=== PATIENT | female | born 1930 | race Caucasian/White ===

== ENCOUNTER 2016-04-18 09:40 | Inpatient (IN) ==
[2016-04-18] MEDS ORDERED: Famotidine 20 MG/2 ML VIAL IVP ONE (10:03)
[2016-04-18] MEDS ORDERED: *HR* Promethazine 25 MG/ML VIAL IVP PRN (10:03)
[2016-04-18] MEDS ORDERED: *HR* OxyCODONE/APAP 5/325 TABLET PO PRN (10:03)
[2016-04-18] MEDS ORDERED: *HR* HYDROmorphone (PF) 1 MG/ML SYRINGE IVP PRN ×2 (10:03→15:47)
--- NOTE | 2016-04-18 10:03 | Discharge Summary ---
Outpatient Proc Discharge Plan - Plan Additional Instructions: Keep dressing dry okay to squeeze ball Prescriptions: Clindamycin [Cleocin] 150 mg PO Q6HR #12 capsule Hydrocodone/Acetaminophen [[place] 5-325 Tablet] 1 - 2 tab PO Q6H PRN #40 tab PRN Reason: Pain Ondansetron [Zofran] 4 mg PO Q8HR #30 tablet Home Medications: Amlodipine [Norvasc] 5 mg PO DAILY 04/18/16 [History] Chlorpheniramine Maleate [Allergy Relief] 4 mg PO DAILY PRN 04/18/16 [History] Clindamycin [Cleocin] 150 mg PO Q6HR #12 capsule 04/18/16 [Rx] FLUoxetine HCl [Prozac] 20 mg PO DAILY 04/18/16 [History] Fluticasone Propionate Nasal [Flonase] 2 spray NS DAILY 04/18/16 [History] Gabapentin [Neurontin] 300 mg PO TID 04/18/16 [History] Hydrocodone/Acetaminophen [[place] 5-325 Tablet] 1 - 2 tab PO Q6H PRN #40 tab [Rx] Lisinopril [Zestril] 40 mg PO DAILY 04/18/16 [History] Loperamide [Imodium] 2 mg PO Q4HR PRN 04/18/16 [History] Metoprolol Succinate 100 mg PO DAILY 04/18/16 [History] Multivitamin [One Daily Essential] 1 tab PO DAILY 04/18/16 [History] Omeprazole [PriLOSEC] 40 mg PO DAILY 04/18/16 [History] Ondansetron HCl [Zofran] 4 mg PO Q6HR PRN 04/18/16 [History] Ondansetron [Zofran] 4 mg PO Q8HR #30 tablet 04/18/16 [Rx] Oxycodone HCl/Acetaminophen [Percocet 5-325 mg Tablet] 1 tab PO Q4H PRN [History] Oxygen 1 each .ROUTE AD 04/18/16 [History] Tramadol HCl [Ultram] 100 mg PO BID PRN 04/18/16 [History] Vit C/E/Zn/Coppr/Lutein/Zeaxan [Ocuvite Lutein & Zeaxanthin Cp] 1 cap PO DAILY 04/18/16 [History]
[2016-04-18] MEDS ORDERED: Gabapentin 300 MG CAPSULE PO STA (10:06)
--- NOTE | 2016-04-18 10:10 | Anesthesia Evaluation PreOp ---
Date of Encounter: 04/18/16 Time of Encounter: 10:08 - Past History Planned Operation: ORIF R-humerus Cardiac History: HTN (maintained on Metoprolol XL, Norvasc, Lisinopril), Hyperlipidemia Pulmonary History: COPD (Home O2), ERICA Dx (no CPAP use within past 1week) TECHNICAL SOLUTIONS ENGINEER History: Other (Fibromyalgia - maintained on Gabapentin, Anxiety/ Depression - maintained on Prozac) Other Medical History: Renal (stage 3 CKD), GERD (maintainted on), Other (Basal Cell Ca) Anesthesia History: Past Anesthesia (R-arm surgery 2012, B-Total shoulders, sinus surgery x 2, L-TKR 2003, ovarian cystectomy 1998), Problems (PONV) Alcohol Use: none Drug use: none Medications and Allergies Ondansetron HCl [Zofran] 4 mg PO Q6HR #20 tablet 04/11/16 [Rx] Oxycodone HCl/Acetaminophen [Percocet 5-325 mg Tablet] 1 each PO Q4H #20 tablet 04/11/16 [Rx] Clindamycin [Cleocin] 150 mg PO Q6HR #12 capsule 04/18/16 [Rx] Ondansetron [Zofran] 4 mg PO Q8HR #30 tablet 04/18/16 [Rx] OxyCODONE Immed Rel [Roxicodone 5 MG] 5 - 10 mg PO Q6HR PRN #30 tablet 04/18/16 [Rx] Allergies aspirin Allergy (Verified 04/18/16 10:26) Nausea cefdinir Allergy (Verified 04/18/16 10:26) UNKNOWN ciprofloxacin Allergy (Verified 04/18/16 10:26) Anaphylaxis codeine Allergy (Verified 04/18/16 10:26) "MADE ME CRAZY" morphine Allergy (Verified 04/18/16 10:26) N/V Sulfa (Sulfonamide Antibiotics) Allergy (Verified 04/18/16 10:26) UNEFFECTIVE Oxycodone Adverse Reaction (Verified 04/18/16 10:26) "DON'T LIKE THE WAY IT MAKES ME FEEL" - Meds/Allergy Pre-op Review Medications Reviewed: Yes Allergies Reviewed: Yes Beta Blockers on Current Med List: Yes If Beta Blockers taken, Date/Time (Last Dose taken): Metoprolol 04/18 @ 0600 Anesthesia Results - Labs Laboratory Tests 04/14/16 04/14/16 11:51 11:51 WBC 10.2 Hgb 12.6 Hct 39.0 Plt Count 133 L Sodium 135 L Potassium 5.0 H Chloride 102 Carbon Dioxide 24 BUN 37 H Creatinine 1.94 H Est GFR (Non-Af Amer) 25 L Glucose 91 - Imaging EKG: image reviewed (70bpm SR) Anesthesia Exam O2 Sat Height 1.63 m Height 1.63 m Weight 83.915 kg Weight 83.915 kg O2 Sat by Pulse Oximetry 95 Vital Signs Temp Pulse Resp BP Pulse Ox 99.0 F 73 18 158/78 95 04/18/16 10:11 04/18/16 10:11 04/18/16 10:11 04/18/16 10:11 04/18/16 10:11 Height: 5'4" Weight: 185# NPO (# of Hours): MNoc - HEENT Pupil (Motor): Pupils equal, EOMI Mallampati: II Teeth: Edentulous Denture Type: Upper: Complete, Lower: Complete Oral Opening: Greater than 3 - TECHNICAL SOLUTIONS ENGINEER LOC: Oriented TECHNICAL SOLUTIONS ENGINEER Motor: Normal LUE, Normal RLE, Normal LLE, Normal Face, Deficit RUE TECHNICAL SOLUTIONS ENGINEER Sensory: Normal: LUE, RLE, LLE, Face, Deficit: RUE - Cardiac Rhythm: Regular Murmur: None - Pulmonary Breath Sounds: bilateral Clear Respiratory Effort: Symmetrical Anesthesia Assess/Plan ASA Score: 3 Modified Basilio Scale for Level of Consciousness: Cooperative, oriented, and tranquil Anesthetic Plan: General, Regional Monitoring Plan: Standard Monitors Recovery Plan: PACU Anes Supervising Prov Stmt: Pt seen/evaluated, R&B discussed, questions answered and consent obtained. Sarah Hair MD
[2016-04-18] MEDS ORDERED: Acetaminophen IV 1,000 MG/100 ML INFUS..BTL IVPB ONE (10:12)
[2016-04-18] MEDS ORDERED: *HR* Midazolam HCl 2 MG/2 ML VIAL ONE (10:29)
[2016-04-18] MEDS ORDERED: *HR* FentaNYL (PF) 100 MCG/2 ML VIAL ONE (10:29)
[2016-04-18] MEDS ORDERED: *HR* Propofol 200 MG/20 ML VIAL IVP ONE (10:30)
[2016-04-18] MEDS ORDERED: Lidocaine -MPF 2% 2 ML VIAL ONE (10:31)
[2016-04-18] MEDS ORDERED: *HR* Succinylcholine 200 MG/10 ML VIAL IVP ONE (10:31)
[2016-04-18] MEDS ORDERED: Lidocaine -MPF 4% 5 ML AMPUL ONE (10:32)
[2016-04-18] MEDS ORDERED: Scopolamine Patch 1.5 MG PATCH.TD72 TD ONE (10:34)
[2016-04-18] MEDS ORDERED: Bupivacaine/Clonidine Syringe 1 EACH SYRINGE ONE (10:35)
[2016-04-18] MEDS ORDERED: Tetracaine/PF 20 MG/2 ML AMPUL SPINA ONE (10:36)
[2016-04-18] MEDS ORDERED: Ringers Solution, Lactated 1,000 ML IVC SCH ×2 (11:15→15:47)
--- NOTE | 2016-04-18 11:21 | History & Physical Report ---
Date of Encounter: 04/18/16 Time of Encounter: 11:21 24 Hour HP Update - Instructions Instructions: If the History and Physical is less than 30 days old and was completed prior to A.M. admission and or procedure and has NOT been updated on calendar day of procedure please complete this update prior to performing procedure. - Update Patient reports changes in Medical Condition: No Changes in assessment/condition: No Changes in Medication: No Preop tests/diagnostics Reviewed: Yes Surgery Remains Indicated: Yes Consent for Planned Operative Procedure(s) Verified: Yes - Pre-Operative Checklist Preoperative Checklist Indicated: No Prophylactic Antibiotic Ordered: Yes Is VTE Prophylaxis Indicated?: NO
--- NOTE | 2016-04-18 12:20 | Anesthesia Procedures ---
Date of Encounter: 04/18/16 Time of Encounter: 12:18 Procedures: Anesthesia - Nerve Block Procedure Date: 04/18/16 Time: 12:18 Pre-op Diagnosis: Right Humerus Fx Checklist: Correct Patient Identifier, Correct procedure, History checked Correct side: Right Blood Thinner: No Monitor Applied: EKG, BP, Pulse Oximetry Supplemental Oxygen via Nasal Cannula (L/min): 2 Sedation: Versed (mg): 1 Sedation: Fentanyl (mcg): 25 Indication: Post Op Analgesia (per Dr. Su) Pre-op Neuro Deficits: No Block Type: Supraclavicular Catheter placed: No Sterile Technique: Yes Ultrasound used: Yes Anatomy identified: Yes Visual spread of Local: Yes Neuro Stimulation: No Blood on Needle Aspiration: No Smooth Injection of Local: Yes Pain with Injection of Local: No Prep: Chlorhexadine Needle: 22 x 50 mm Stimuplex Local: 0.25% Bupivicaine w/Clonidine 20 mcg/cc, Tetracaine Volume (cc): 35cc + 5 cc SCP Number of Attempts: 1 Complications: None/effective block Vitals: 116/76, 70, 98% 2LNC, 16 Comments: [facility]
[2016-04-18] MEDS ORDERED: Clindamycin 900 MG/50 ML 900 MG/50 ML IV.SOLN IVPB ONE (12:25)
[2016-04-18] MEDS ORDERED: EPHEDrine 50 MG/ML VIAL ONE (13:23)
[2016-04-18] MEDS ORDERED: Dexamethasone 4 MG/ML VIAL ONE (13:27)
[2016-04-18] MEDS ORDERED: Ondansetron 4 MG/2 ML VIAL ONE (13:27)
--- NOTE | 2016-04-18 14:34 | Orthopedic Operative Note ---
Date of procedure: 04/18/16 Pre-op diagnosis: right displaced comminuted distal third humeral shaft fracture Post-op diagnosis: same Procedure: Procedure: Right open reduction internal fixation Humerus Estimated blood loss: 350 cc Hardware: Synthes metaphyseal 3.5/ 4.5 LCDCP locking Plate, 1 4.5 cortical screws, 3 5.0 Locking screws, 4 3.5 locking screws, one 3.5 cortical screw 4 super cables Procedural Notes: Patient had a comminuted displaced distal third fracture below her shoulder prosthesis. Operative procedure: The patient was brought to the operating room and placed on the operating room table. After general anesthesia was administered the operative arm was prepped and draped in the sterile surgical fashion The patient received IV antibiotics prior to skin incision. A standard anterior lateral approach is made to the humerus, the incision is made to the skin and subcutaneous tissue. Hemostasis was obtained with Bovie cautery. Using careful blunt dissection the interval between the brachialis and the brachial radialis was developed. The radial nerve was identified and protected. The brachialis was split and the fracture site was exposed. The fracture was irrigated of fracture hematoma. Fracture was reduced and held in place with bone holding forceps. It was a comminuted fracture. Initial fixation was accomplished with 2 super cables. A 3.5/4.5 metaphyseal LCDCP locking plate was approximated to the anterior lateral surface, it was fixed initially in compression with a 4.5 cortical screw. It was fixed distally with one 3.5 cortical screw and 5 3.5 locking screws. Fixation proximally was completed with 3 5.0 locking screws. Fixation was augmented with 2 super cables around the whole construct superiorly and inferiorly. Direct Vision of the hardware was found to be acceptable as well as the reduction. This was confirmed with direct visualization and fluoroscopy. The wound was irrigated and the interval was closed with a running #1 PDS suture. The subcutaneous tissues irrigated and closed deep with #1 PDS suture superficially with 0 PDS suture and skin was closed with Dermabond skin emilia. The patient was placed in a sterile dressing, posterior splint. The patient was extubated, and then transferred to the recovery room in stable condition. Anesthesia: GETA Condition: stable Disposition: PACU
--- NOTE | 2016-04-18 15:31 | Discharge Summary ---
Date of Encounter: 04/22/16 Time of Encounter: 06:33 - Discharge Diagnosis (1) HTN (hypertension) Priority: Secondary Status: Acute Qualifiers: Hypertension type: unspecified secondary hypertension Qualified Code(s): I15.9 - Secondary hypertension, unspecified; I15 - Secondary hypertension (2) COPD (chronic obstructive pulmonary disease) Priority: Secondary Status: Acute Qualifiers: COPD type: unspecified COPD Qualified Code(s): J44.9 - Chronic obstructive pulmonary disease, unspecified (3) CKD (chronic kidney disease) stage 3, GFR 30-59 ml/min Priority: Secondary Status: Chronic (4) ERICA (obstructive sleep apnea) Priority: Secondary Status: Chronic (5) Hyperlipidemia Priority: Secondary Status: Acute Qualifiers: Hyperlipidemia type: unspecified Qualified Code(s): E78.5 - Hyperlipidemia , unspecified (6) Humerus distal fracture Priority: Primary Status: Inactive Qualifiers: Encounter type: initial encounter Fracture type: closed Fracture alignment: displaced Laterality: right Qualified Code(s): S42.491A - Other displaced fracture of lower end of right humerus, initial encounter for closed fracture (7) Postoperative confusion Priority: Primary Status: Acute - Discharge Medications Home Medications: Amlodipine [Norvasc] 5 mg PO DAILY 04/18/16 [History] Chlorpheniramine Maleate [Allergy Relief] 4 mg PO DAILY PRN 04/18/16 [History] FLUoxetine HCl [Prozac] 20 mg PO DAILY 04/18/16 [History] Fluticasone Propionate Nasal [Flonase] 2 spray NS DAILY 04/18/16 [History] Gabapentin [Neurontin] 300 mg PO TID 04/18/16 [History] Hydrocodone/Acetaminophen [[place] 5-325 Tablet] 1 - 2 tab PO Q6H PRN #40 tab [Rx] Lisinopril [Zestril] 40 mg PO DAILY 04/18/16 [History] Loperamide [Imodium] 2 mg PO Q4HR PRN 04/18/16 [History] Metoprolol Succinate 100 mg PO DAILY 04/18/16 [History] Multivitamin [One Daily Essential] 1 tab PO DAILY 04/18/16 [History] Omeprazole [PriLOSEC] 40 mg PO DAILY 04/18/16 [History] Ondansetron HCl [Zofran] 4 mg PO Q6HR PRN 04/18/16 [History] Ondansetron [Zofran] 4 mg PO Q8HR #30 tablet 04/18/16 [Rx] Oxycodone HCl/Acetaminophen [Percocet 5-325 mg Tablet] 1 tab PO Q4H PRN [History] Oxygen 1 each .ROUTE AD 04/18/16 [History] Tramadol HCl [Ultram] 100 mg PO BID PRN 04/18/16 [History] Vit C/E/Zn/Coppr/Lutein/Zeaxan [Ocuvite Lutein & Zeaxanthin Cp] 1 cap PO DAILY 04/18/16 [History] Allergies/Adverse Reactions: Allergies aspirin Allergy (Verified 04/18/16 10:26) Nausea cefdinir Allergy (Verified 04/18/16 10:26) UNKNOWN ciprofloxacin Allergy (Verified 04/18/16 10:26) Anaphylaxis codeine Allergy (Verified 04/18/16 10:26) "MADE ME CRAZY" morphine Allergy (Verified 04/18/16 10:26) N/V Sulfa (Sulfonamide Antibiotics) Allergy (Verified 04/18/16 10:26) UNEFFECTIVE Oxycodone Adverse Reaction (Verified 04/18/16 10:26) "DON'T LIKE THE WAY IT MAKES ME FEEL" - Impressions ITS Impressions Fluoroscopy 04/18/16 00:00 IMPRESSION: Intraprocedural fluoroscopic spot images as above. See separate procedure report for more information. D/ /18/2016 14:57:26 Jimenez Atkinson MD / aleksandra Interpreting Provider: Jimenez Atkinson MD Humerus X-Ray 04/18/16 00:00 IMPRESSION: Intraprocedural fluoroscopic spot images as above. See separate procedure report for more information. D/ /18/2016 14:57:26 Jimenez Atkinson MD / aleksandra Interpreting Provider: Jimenez Atkinson MD Primary care physician: Angelica Nieves Consults: 04/18/16 14:43 Consult to Superintendent [employer] [CONS] Stat Reason for SW Consult: FAMILY CONCERNED ABOUT PT HOME CARE S/P RUE SX. - Patient Status Disposition: Transfer Inpatient Rehab Fac Condition: Good Functional capacity at discharge: independent ambulation Overall status at discharge: patient is progressing back to baseline - Discharge Instructions Follow Up With: Brionna aBum DO [Primary Care Provider] - Additional Instructions: Keep dressing dry okay to squeeze ball - Hospital Course Hospital course: Ms. Roland is a 85 year old female The patient had an uneventful postoperative course. Experience some postoperative mental status changes doing well this morning They received antibiotics and physical therapy and were discharged in stable condition. There will follow-up in the office in 2 weeks. - Time Spent with Patient Total time spent providing and/or coordinating discharge services:
[2016-04-18] MEDS ORDERED: Albuterol Neb 1.25 MG/3 ML VIAL IH ONE (15:47)
[2016-04-18] MEDS ORDERED: NON-FORMULARY MEDICATION 1 EACH EACH (Oxygen [Oxygen] 1 EACH) SCH (15:47)
[2016-04-18] MEDS ORDERED: Ondansetron 4 MG/2 ML VIAL IVP PRN (15:47)
[2016-04-18] MEDS ORDERED: Temazepam 15 MG CAPSULE PO PRN (15:47)
[2016-04-18] MEDS ORDERED: MOM Conc 10 ML UD.LIQ PO PRN (15:47)
[2016-04-18] MEDS ORDERED: Naloxone 0.4 MG/ML INJ IVP PRN (15:47)
[2016-04-18] MEDS ORDERED: [UNRECOGNIZED DRUG - REMARK] PO PRN (15:47)
[2016-04-18] MEDS ORDERED: Sennosides 8.6 MG TABLET PO PRN (15:47)
--- NOTE | 2016-04-18 16:28 | Anesthesia Evaluation Post Op ---
Date of Encounter: 04/18/16 Time of Encounter: 16:27 - Vital Signs Vital Signs: Vital Signs/O2 Sat, Most Current Temp Pulse Resp BP Pulse Ox 97.8 F 69 14 110/61 97 04/18/16 16:00 04/18/16 16:00 04/18/16 16:00 04/18/16 16:00 04/18/16 16:00 - Lungs Lungs: Clear Ascult./Percussion - Airway Airway: Non-obstructed - Cardiovascular Regular Rate - Mental Status Mental Status: Alert & Oriented, Answers Appropriately - Pain Pain Scale: 0 (no shoulder pain) Pain Scale used: Numeric (1 - 10) - Nausea Vomiting Nausea Vomiting: Not Present - Hydration Hydration: Ice chips, Has not voided - Discharge PostOp Status: Transfer Patient to floor
[2016-04-18] MEDS ORDERED: *HR* Phenylephrine 10 MG/ML VIAL ONE (17:04)
[2016-04-18] MEDS: Clindamycin 900 MG/50 ML 900 MG/50 ML IV.SOLN IVPB SCH (22:16)
[2016-04-18] MEDS: Gabapentin 300 MG CAPSULE PO SCH (22:16)
[2016-04-18] MEDS: traMADol 50 MG TABLET PO PRN (23:14)
[2016-04-19] MEDS: *HR* Enoxaparin 30 MG/0.3 ML SYRINGE SQ SCH (05:28)
[2016-04-19] MEDS: Clindamycin 900 MG/50 ML 900 MG/50 ML IV.SOLN IVPB SCH (05:28)
[2016-04-19 06:07] LABS: Hematocrit 35.7 % (35.3-44.9); Hemoglobin 11.5 g/dL (11.5-15.4)
--- NOTE | 2016-04-19 06:28 | Orthopedics Progress Note ---
Date of Encounter: 04/19/16 Time of Encounter: 06:27 - Assessment and Plan (1) HTN (hypertension) Current Visit: Yes Status: Acute Qualifiers: Hypertension type: unspecified secondary hypertension Qualified Code(s): I15.9 - Secondary hypertension, unspecified; I15 - Secondary hypertension (2) COPD (chronic obstructive pulmonary disease) Current Visit: Yes Status: Acute Qualifiers: COPD type: unspecified COPD Qualified Code(s): J44.9 - Chronic obstructive pulmonary disease, unspecified (3) CKD (chronic kidney disease) stage 3, GFR 30-59 ml/min Current Visit: Yes Status: Chronic (4) ERICA (obstructive sleep apnea) Current Visit: Yes Status: Chronic (5) Hyperlipidemia Current Visit: Yes Status: Acute Qualifiers: Hyperlipidemia type: unspecified Qualified Code(s): E78.5 - Hyperlipidemia , unspecified (6) Humerus distal fracture Current Visit: No Status: Inactive Qualifiers: Encounter type: initial encounter Fracture type: closed Fracture alignment: displaced Laterality: right Qualified Code(s): S42.491A - Other displaced fracture of lower end of right humerus, initial encounter for closed fracture (7) Postoperative confusion Current Visit: Yes Status: Acute Subjective Interval history: Patient was seen this morning post operative confusion most likely medication related. Continue to monitor Afebrile vital signs stable. Operative extremity: Neurovascularly intact Dressing clean dry and intact Calves nontender Assessment and plan: Continue with postoperative care Objective Vital signs: Vital Signs Temp Pulse Resp BP Pulse Ox 04/19/16 01:36 98.5 F 88 20 128/74 96 04/18/16 23:15 98.1 F 86 20 112/66 96 04/18/16 21:32 98.2 F 98 18 115/62 94 L 04/18/16 19:01 98.7 F 85 16 110/63 93 L 04/18/16 18:02 98.3 F 77 16 112/59 93 L 04/18/16 17:04 97.8 F 72 14 116/49 99 04/18/16 16:30 98.2 F 70 14 113/60 98 04/18/16 16:00 97.8 F 69 14 110/61 97 04/18/16 15:38 97.2 F L 69 16 99/52 99 04/18/16 15:28 73 16 103/53 98 04/18/16 15:18 67 16 108/83 98 04/18/16 15:08 97.8 F 70 16 106/58 100 04/18/16 14:58 69 16 121/69 99 04/18/16 14:48 70 16 121/65 99 04/18/16 14:38 98.1 F 75 16 125/64 99 04/18/16 10:11 99.0 F 73 18 158/78 95 Intake and Output 04/18/16 04/18/16 04/19/16 15:59 23:59 07:59 Intake Total 375 / 375 1150 / 1150 Output Total 350 / 350 500 / 500 200 / 200 Balance -350 / -350 -125 / -125 950 / 950 Intake: IV Fluids 50 / 50 Cleocin 900 MG/50 ML 900 50 / 50 mg In 50 ml @ 50 mls/hr IVPB Q8H EMILIE Rx#: [id number] Oral 325 / 325 1150 / 1150 Output: Urine 500 / 500 200 / 200 Estimated Blood Loss 350 / 350 Other: # Voids 2 Weight 83.915 kg - Labs CBC & BMP: 04/19/16 05:31 - VTE Documentation of Mechanical Device: Venous foot pump, device Consult Discharge Plan - Plan Additional Instructions: Keep dressing dry okay to squeeze ball Referrals: Brionna Baum, DO [Primary Care Provider] -
[2016-04-19] MEDS ORDERED: [UNRECOGNIZED DRUG - OTHER] PO SCH (09:00)
[2016-04-19] MEDS: Gabapentin 300 MG CAPSULE PO SCH ×3 (09:59→20:10)
[2016-04-19] MEDS: amLODIPine 5 MG TABLET PO SCH (09:59)
[2016-04-19] MEDS: Multivit/Ca/Min/Fe/FA 1 TAB TABLET PO SCH (10:00)
[2016-04-19] MEDS: FLUoxetine 20 MG CAPSULE PO SCH (10:00)
[2016-04-19] MEDS: Lisinopril 20 MG TABLET PO SCH (10:00)
[2016-04-19] MEDS: Metoprolol XL (24 HR) Succ 50 MG TAB.ER.24H PO SCH (10:00)
[2016-04-19] MEDS: Fluticasone Propionate Nasal 50 MCG/SPRAY BOTTLE NS SCH (10:27)
[2016-04-19] MEDS ORDERED: *HR* Enoxaparin 30 MG/0.3 ML SYRINGE SQ SCH (15:24)
[2016-04-19] MEDS: traMADol 50 MG TABLET PO PRN (16:59)
[2016-04-19] MEDS: *HR* HYDROcodone/Acet 5/325 mg TABLET PO PRN (20:11)
[2016-04-20] MEDS: traMADol 50 MG TABLET PO PRN (03:51)
[2016-04-20 05:16] LABS: Hematocrit 36.6 % (35.3-44.9); Hemoglobin 12.2 g/dL (11.5-15.4)
[2016-04-20] MEDS: *HR* Enoxaparin 30 MG/0.3 ML SYRINGE SQ SCH (06:05)
--- NOTE | 2016-04-20 09:24 | Orthopedics Progress Note ---
Date of Encounter: 04/20/16 Time of Encounter: 09:23 Subjective Interval history: Resting in bed comfortably. Confusion seems to be improving. No new complaints. Pain very well controlled. Exam: Operative extremity with dressing and splint, clean , dry, and intact. She can grossly flex and extend her wrist and digits Hand is well perfused. Assessment and Plan: Post ORIF of the periprosthetic distal humerus fracture Resume postoperative care Objective Vital signs: Vital Signs Temp Pulse Resp BP Pulse Ox 04/20/16 06:34 98.1 F 94 16 123/51 96 04/20/16 03:51 97.9 F 96 18 118/57 92 L 04/20/16 00:37 97.9 F 84 18 117/66 92 L 04/19/16 20:32 97.9 F 84 16 156/70 95 04/19/16 14:37 98.3 F 87 16 119/53 94 L 04/19/16 11:47 98.6 F 84 15 116/55 95 04/19/16 09:55 95 Intake and Output 04/19/16 04/20/16 04/20/16 23:59 07:59 15:59 Intake Total 200 / 200 100 / 100 Output Total Balance 200 / 200 99 / 99 Intake: Oral 200 / 200 100 / 100 Output: Straight Cath Other: # Voids 2 1 # Urine Diapers 1 - Labs CBC & BMP: 04/20/16 04:22 - VTE Documentation of Mechanical Device: Venous foot pump, device Consult Discharge Plan - Plan Additional Instructions: Keep dressing dry okay to squeeze ball Referrals: Brionna Baum, [Primary Care Provider] -
[2016-04-20] MEDS: Metoprolol XL (24 HR) Succ 50 MG TAB.ER.24H PO SCH (09:26)
[2016-04-20] MEDS: amLODIPine 5 MG TABLET PO SCH (09:26)
[2016-04-20] MEDS: Lisinopril 20 MG TABLET PO SCH (09:26)
[2016-04-20] MEDS: FLUoxetine 20 MG CAPSULE PO SCH (09:26)
[2016-04-20] MEDS: Gabapentin 300 MG CAPSULE PO SCH ×3 (09:27→20:50)
[2016-04-20] MEDS: Multivit/Ca/Min/Fe/FA 1 TAB TABLET PO SCH (09:27)
[2016-04-20] MEDS: Fluticasone Propionate Nasal 50 MCG/SPRAY BOTTLE NS SCH (09:28)
[2016-04-21] MEDS: *HR* Enoxaparin 30 MG/0.3 ML SYRINGE SQ SCH (05:00)
[2016-04-21] MEDS: traMADol 50 MG TABLET PO PRN ×2 (05:00→16:27)
--- NOTE | 2016-04-21 06:25 | Orthopedics Progress Note ---
Date of Encounter: 04/21/16 Time of Encounter: 06:24 - Assessment and Plan (1) HTN (hypertension) Current Visit: Yes Status: Acute Qualifiers: Hypertension type: unspecified secondary hypertension Qualified Code(s): I15.9 - Secondary hypertension, unspecified; I15 - Secondary hypertension (2) COPD (chronic obstructive pulmonary disease) Current Visit: Yes Status: Acute Qualifiers: COPD type: unspecified COPD Qualified Code(s): J44.9 - Chronic obstructive pulmonary disease, unspecified (3) CKD (chronic kidney disease) stage 3, GFR 30-59 ml/min Current Visit: Yes Status: Chronic (4) ERICA (obstructive sleep apnea) Current Visit: Yes Status: Chronic (5) Hyperlipidemia Current Visit: Yes Status: Acute Qualifiers: Hyperlipidemia type: unspecified Qualified Code(s): E78.5 - Hyperlipidemia , unspecified (6) Humerus distal fracture Current Visit: No Status: Inactive Qualifiers: Encounter type: initial encounter Fracture type: closed Fracture alignment: displaced Laterality: right Qualified Code(s): S42.491A - Other displaced fracture of lower end of right humerus, initial encounter for closed fracture (7) Postoperative confusion Current Visit: Yes Status: Acute Subjective Interval history: Patient was seen this morning doing better Afebrile vital signs stable. Operative extremity: Neurovascularly intact Dressing clean dry and intact Calves nontender Assessment and plan: Continue with postoperative care dc tomorrow due to placement issues Objective Vital signs: Vital Signs Temp Pulse Resp BP Pulse Ox 04/21/16 04:58 76 133/72 04/21/16 00:31 97.9 F 98 20 124/62 93 L 04/20/16 20:18 97.9 F 99 20 120/67 94 L 04/20/16 15:00 97.8 F 93 16 114/63 92 L 04/20/16 10:36 97.6 F 87 16 117/58 93 L 04/20/16 06:34 98.1 F 94 16 123/51 96 Intake and Output 04/20/16 04/20/16 04/21/16 15:59 23:59 07:59 Intake Total 240 / 240 320 / 320 150 / 150 Balance 240 / 240 320 / 320 150 / 150 Intake: Oral 240 / 240 320 / 320 150 / 150 Other: Meal Dinner Percent of Meal Consumed 40% # Voids 1 1 # Urine Diapers 1 1 - Labs CBC & BMP: 04/20/16 04:22 - VTE Documentation of Mechanical Device: Venous foot pump, device Consult Discharge Plan - Plan Additional Instructions: Keep dressing dry okay to squeeze ball Referrals: Brionna Baum, DO [Primary Care Provider] -
[2016-04-21] MEDS: FLUoxetine 20 MG CAPSULE PO SCH (11:41)
[2016-04-21] MEDS: Fluticasone Propionate Nasal 50 MCG/SPRAY BOTTLE NS SCH (11:41)
[2016-04-21] MEDS: Multivit/Ca/Min/Fe/FA 1 TAB TABLET PO SCH (11:42)
[2016-04-21] MEDS: amLODIPine 5 MG TABLET PO SCH (11:42)
[2016-04-21] MEDS: Metoprolol XL (24 HR) Succ 50 MG TAB.ER.24H PO SCH (11:42)
[2016-04-21] MEDS: Lisinopril 20 MG TABLET PO SCH (11:42)
[2016-04-21] MEDS: Gabapentin 300 MG CAPSULE PO SCH ×3 (11:42→21:12)
[2016-04-21] MEDS ORDERED: traMADol 50 MG TABLET PO PRN (15:19)
[2016-04-21] MEDS: *HR* HYDROcodone/Acet 5/325 mg TABLET PO PRN (21:12)
[2016-04-22] MEDS: traMADol 50 MG TABLET PO PRN ×2 (05:02→10:11)
[2016-04-22] MEDS: *HR* Enoxaparin 30 MG/0.3 ML SYRINGE SQ SCH (05:02)
--- NOTE | 2016-04-22 06:34 | Orthopedics Progress Note ---
Date of Encounter: 04/22/16 Time of Encounter: 06:34 - Assessment and Plan (1) HTN (hypertension) Current Visit: Yes Status: Acute Qualifiers: Hypertension type: unspecified secondary hypertension Qualified Code(s): I15.9 - Secondary hypertension, unspecified; I15 - Secondary hypertension (2) COPD (chronic obstructive pulmonary disease) Current Visit: Yes Status: Acute Qualifiers: COPD type: unspecified COPD Qualified Code(s): J44.9 - Chronic obstructive pulmonary disease, unspecified (3) CKD (chronic kidney disease) stage 3, GFR 30-59 ml/min Current Visit: Yes Status: Chronic (4) ERICA (obstructive sleep apnea) Current Visit: Yes Status: Chronic (5) Hyperlipidemia Current Visit: Yes Status: Acute Qualifiers: Hyperlipidemia type: unspecified Qualified Code(s): E78.5 - Hyperlipidemia , unspecified (6) Humerus distal fracture Current Visit: No Status: Inactive Qualifiers: Encounter type: initial encounter Fracture type: closed Fracture alignment: displaced Laterality: right Qualified Code(s): S42.491A - Other displaced fracture of lower end of right humerus, initial encounter for closed fracture (7) Postoperative confusion Current Visit: Yes Status: Acute Subjective Interval history: Patient was seen this morning alert and oriented Afebrile vital signs stable. Operative extremity: Neurovascularly intact Dressing clean dry and intact Calves nontender Assessment and plan: Continue with postoperative care dc today Objective Vital signs: Vital Signs Temp Pulse Resp BP Pulse Ox 04/22/16 04:47 98.3 F 72 20 159/75 98 04/21/16 23:32 98.6 F 73 13 101/62 97 04/21/16 20:26 98.5 F 72 17 118/65 97 04/21/16 15:28 98.7 F 73 18 133/68 93 L 04/21/16 11:37 98.6 F 79 16 109/63 96 04/21/16 06:51 98.6 F 76 16 120/69 97 Intake and Output 04/21/16 04/21/16 04/22/16 15:59 23:59 07:59 Intake Total 360 / 360 Balance 360 / 360 Intake: Oral 360 / 360 Other: Meal Dinner Percent of Meal Consumed 100% Stool Size Large Stool Consistency soft Stool Color Brown # Voids 1 # Bowel Movements 1 - Labs CBC & BMP: 04/20/16 04:22 - VTE Documentation of Mechanical Device: Venous foot pump, device Consult Discharge Plan - Plan Additional Instructions: Keep dressing dry okay to squeeze ball Referrals: Brionna Baum, [Primary Care Provider] -
[2016-04-22] MEDS: amLODIPine 5 MG TABLET PO SCH (09:53)
[2016-04-22] MEDS: Lisinopril 20 MG TABLET PO SCH (09:53)
[2016-04-22] MEDS: FLUoxetine 20 MG CAPSULE PO SCH (10:07)
[2016-04-22] MEDS: Metoprolol XL (24 HR) Succ 50 MG TAB.ER.24H PO SCH (10:07)
[2016-04-22] MEDS: Gabapentin 300 MG CAPSULE PO SCH (10:08)
[2016-04-22] MEDS: Multivit/Ca/Min/Fe/FA 1 TAB TABLET PO SCH (10:08)
[2016-04-22] MEDS: Fluticasone Propionate Nasal 50 MCG/SPRAY BOTTLE NS SCH (10:09)
[2016-04-22 10:37] VITALS: BP 119/71
== END 2016-04-22 12:24 | DRG 493 ==
LOC: 3NENU 09:40 → SAMDAY 09:40 → 3NENU 15:48
PROVIDERS: ADMIT Orthopaedic Surgery; ATTEND Orthopaedic Surgery

== ENCOUNTER 2017-04-06 02:03 | Inpatient (IN) ==
[2017-04-06] MEDS ORDERED: Levofloxacin 750 MG/150 ML 750 MG/150 ML BAG IVPB ONE (02:28)
[2017-04-06] MEDS ORDERED: Aztreonam 2,000 MG in Water for inj. (sterile) 20 ML IVP ONE (02:28)
[2017-04-06] MEDS ORDERED: Ipratropium/Albuterol Neb 3 ML IH ONE (02:33)
--- NOTE | 2017-04-06 02:42 | Emergency Department Note ---
Disposition Clinical Impression: CKD (chronic kidney disease) stage 3, GFR 30-59 ml/min Community acquired pneumonia Qualifiers: Laterality: unspecified laterality Qualified Code(s): J18.9 - Pneumonia, unspecified organism Disposition: Admitted As Inpatient Condition: Fair Time of Disposition: 04:11 SOB HPI - General Chief Complaint: ED Shortness of Breath/Dyspnea Stated Complaint: difficulty breathin, chronic back pain Time Seen by Provider: 04/06/17 02:11 Source: patient, EMS Mode of arrival: ambulatory Limitations: no limitations Nursing Notes Reviewed: Yes Vital Signs Reviewed: Yes - History of Present Illness 86-year-old female presents to the emergency department complaining of shortness of breath as well as purulent sputum and cough as well as a fever. Patient does live at home by herself. Says she has not been admitted to the hospital anytime recently. She having a little bit of chest pain says it feels like chest pressure to 2 out of 10 located in the center chest nonradiating. She had no nausea or vomiting. Patient otherwise having no complaints. There are no abdominal pain, pain with urination, change in bowel movements, headache , blurry vision, back pain, neck pain, pain or tingling on the arms or legs or any generalized weakness. - Related Data Home Medications Medication Instructions Recorded Confirmed Fluticasone Propionate Nasal 2 spray NS DAILY 04/18/16 09/11/16 [Flonase] Gabapentin [Neurontin] 300 mg PO TID 04/18/16 09/11/16 Lisinopril [Zestril] 20 mg PO DAILY 04/18/16 09/11/16 Loperamide [Imodium] 2 mg PO Q4HR PRN 04/18/16 09/11/16 Metoprolol Succinate 100 mg PO DAILY 04/18/16 09/11/16 Multivitamin [One Daily Essential] 1 tab PO DAILY 04/18/16 09/11/16 Omeprazole [PriLOSEC] 40 mg PO DAILY 04/18/16 09/11/16 Ondansetron HCl [Zofran] 4 mg PO Q6HR PRN 04/18/16 09/11/16 Tramadol HCl [Ultram] 100 mg PO BID PRN 04/18/16 09/11/16 Vit C/E/Zn/Coppr/Lutein/Zeaxan 1 cap PO DAILY 04/18/16 09/11/16 [Ocuvite Lutein & Zeaxanthin Cp] amLODIPine [Norvasc] 5 mg PO DAILY 04/18/16 09/11/16 Loratadine [Claritin] 10 mg PO DAILY PRN 07/01/16 09/11/16 Temazepam [Restoril] 7.5 mg PO HS 07/23/16 09/11/16 predniSONE [PredniSONE] 20 mg PO AD 07/23/16 09/11/16 Previous Rx's Medication Instructions Recorded Sertraline [Zoloft] 25 mg PO DAILY #30 tablet 07/23/16 HYDROcodone/Acet 5/325 mg [[place] 1 tab PO Q6HR PRN #15 tablet 07/27/16 5-325 mg] Allergies Allergy/AdvReac Type Severity Reaction Status Date / Time aspirin Allergy Nausea Verified 04/06/17 02:04 cefdinir Allergy UNKNOWN Verified 04/06/17 02:04 ciprofloxacin Allergy Anaphylaxis Verified 04/06/17 02:04 codeine Allergy "MADE ME Verified 04/06/17 02:04 CRAZY" morphine Allergy N/V Verified 04/06/17 02:04 Sulfa (Sulfonamide Allergy UNEFFECTIVE Verified 04/06/17 02:04 Antibiotics) Oxycodone AdvReac "DON'T Verified 04/06/17 02:04 LIKE THE WAY IT MAKES ME FEEL" Review of Systems: 10 point review of systems done and negative unless otherwise stated in history of present illness. All systems ED: reviewed and negative except as stated. Review of Systems: As Per HPI Past Medical History - Past Medical History Attestation: Yes The following information was validated with the patient. Medical history: Reports: arthritis, hyperlipidemia, hypertension, renal disease , other Surgical history: Reports: knee replacement, orthopedic, other, other Psychiatric history: Reports: anxiety, depression - Social History Smoking Status: Never smoker Smokeless Tobacco Status: No Alcohol use: Reports: none Drug use: Reports: none Physical Exam - General Limitations: no limitations General appearance: alert - Head Head exam: atraumatic, normocephalic, normal inspection - Eye Eye exam: Present: normal appearance, PERRL, EOMI - ENT ENT exam: normal exam, normal oropharynx, mucous membranes moist - Neck Neck exam: Present: normal inspection - Chest Chest inspection: Present: normal inspection, symmetric chest wall rise - Respiratory Respiratory exam: Present: normal lung sounds bilaterally, wheezes (Bilateral wheezes throughout. As well as bilateral rhonchi.), accessory muscle use. Absent: respiratory distress - Cardiovascular Cardiovascular exam: Present: regular rate, normal rhythm, normal heart sounds - Abdominal Exam Abdominal exam: Present: soft, Non-Tender, normal bowel sounds. Absent: tenderness, distention, guarding, rebound, rigidity - Extremities Exam Extremities exam: Present: normal inspection, full ROM. Absent: tenderness, pedal edema - Expanded Lower Extremity Exam Neurovascular/Tendon exam: Absent: motor deficit, sensory deficit, tendon deficit - Back Exam Back exam: Present: normal inspection, full ROM. Absent: tenderness, CVA tenderness (R), CVA tenderness (L) - Neurological Exam Neurological exam: Present: alert, oriented X3 - Skin Skin exam: Present: warm, dry, intact, normal color Course Course Narrative: 86-year-old female presents to the emergency department complaining of shortness of breath and sputum production she also has a fever. We will treat her as sepsis. We will get CT of her chest without contrast will get basic labs including CBC, CMP, lactate, blood cultures 2, urinalysis. We will give her 2 L IV fluids. Will start patient on Levaquin as this most likely is community acquired pneumonia. Patient was likely disposition will be admission. Vital Signs Temperature 100.3 F H 04/06/17 02:06 Pulse Rate 112 04/06/17 02:06 Respiratory Rate 16 04/06/17 02:06 Blood Pressure 164/103 04/06/17 02:06 O2 Sat by Pulse Oximetry 96 04/06/17 02:06 Temperature 99.0 F 04/06/17 06:01 Pulse Rate 111 04/06/17 06:01 Respiratory Rate 16 04/06/17 06:02 Blood Pressure 148/90 04/06/17 06:02 O2 Sat by Pulse Oximetry 97 04/06/17 06:01 Oxygen Delivery Oxygen Delivery Nasal Cannula Shortness of Breath/Dyspnea - [facility] Narrative Medical decision making narrative: 86-year-old female presents to the emergency department with green sputum as well as fevers and difficulty in breathing and cough. Did do CT of her chest without contrast did show possible bronchitis or mild pneumonia. We did treat her as community acquired if she does say home has not been recently hospitalized treat her with IV Levaquin. Did give her a 30 male per kilogram bolus of IV fluids this did help with her tachycardia. She did have a fever here. All labs are normal except her creatinine which is normal for her. She does have history of CKD. Overall patient is doing well after this. She did get a breathing treatment should help with her breathing. She was less short of breath after getting the breathing treatments. Due to patient's fever and comorbidities we felt patient needed be admitted for further evaluation as well as IV antibiotics. Patient is admitted to the hospitalist service. I spoke with the hospitalist, Dr. España agreed to admit the patient to their service. Patient is admitted in stable condition. Chest CT 04/06/17 02:27 IMPRESSION: Diffuse bronchial wall thickening most pronounced in the lower lobes consistent with bronchitis. There is mild bilateral lower lobe bronchiectasis. There are few bands of bibasilar atelectasis with no confluent pneumonia. D/ / Herbert Figueroa MD / Herbert Figueroa MD Interpreting Provider: Herbert Figueroa MD - Medical Records Medical records reviewed: Yes I reviewed the patient's medical records. - Lab Data Lab results reviewed: Yes I reviewed the patient's lab results. Result diagrams: 04/06/17 03:11 04/06/17 03:11 Lab Results 04/06/17 04/06/17 04/06/17 Range/Units 03:11 03:11 03:11 WBC 10.7 (4.3-11.1) K/mcL RBC 5.37 H (3.82-4.97) M/mcL Hgb 15.1 (11.5-15.4) g/dL Hct 45.8 H (35.3-44.9) % MCV 85.3 (83.0-100.0) fL MCH 28.1 (28.0-33.3) pg MCHC 33.0 (31.6-35.5) g/dL RDW 14.8 H (11.5-14.5) % Plt Count 84 L (140-400) K/mcL MPV 11.8 (9.4-12.4) fL Immature Gran % 0.4 (0-4) % Seg Neutrophils % 81.7 % Lymphocytes % 12.5 % Monocytes % 5.1 % Eosinophils % 0.1 % Basophils % 0.2 % Neutrophils # 8.7 (1.6-8.9) K/mcL Lymphocytes # 1.3 (0.6-4.6) K/mcL Monocytes # 0.6 (0.0-1.3) K/mcL Eosinophils # 0.0 (0.0-0.6) K/mcL Basophils # 0.0 (0.0-0.2) K/mcL Immature Plt Fraction 9.9 H (1.1-6.1) % PT 11.3 (9.4-12.1) Seconds INR 1.1 APTT 26.7 (26.0-36.0) Seconds Sodium 133 L (136-145) mEq/L Potassium 4.1 (3.5-4.5) mEq/L Chloride 99 (98-109) mEq/L Carbon Dioxide 23 (19-29) mEq/L BUN 13 (7-20) mg/dL Creatinine 1.14 H (0.57-1.11) mg/dL Est GFR ( Amer) 55 L (> 60) Est GFR (Non-Af Amer) 45 L (> 60) BUN/Creatinine Ratio 11 (6-26) Glucose 141 H (70-99) mg/dL Calculated Osmolality 278 L (280-300) Lactic Acid (0.5-2.2) mmol/L Calcium 9.9 (8.6-10.8) mg/dL Phosphorus 3.0 (2.3-4.7) mg/dL Magnesium 1.9 (1.6-2.6) mg/dL Total Bilirubin 0.7 (0.2-1.2) mg/dL Direct Bilirubin 0.3 (0.0-0.5) mg/dL Indirect Bilirubin 0.4 (0.0-1.2) mg/dL AST 16 (5-34) Units/L ALT 11 (0-55) Units/L Alkaline Phosphatase 103 (38-126) Units/L Troponin I (0-0.03) ng/mL Serum Total Protein 6.9 (6.0-8.3) g/dL Albumin 3.9 (3.5-5.0) g/dL Globulin 3.0 (2.4-3.5) g/dL Albumin/Globulin Ratio 1.3 (1.1-2.2) 04/06/17 04/06/17 Range/Units 03:11 03:11 WBC (4.3-11.1) K/mcL RBC (3.82-4.97) M/mcL Hgb (11.5-15.4) g/dL Hct (35.3-44.9) % MCV (83.0-100.0) fL MCH (28.0-33.3) pg MCHC (31.6-35.5) g/dL RDW (11.5-14.5) % Plt Count (140-400) K/mcL MPV (9.4-12.4) fL Immature Gran % (0-4) % Seg Neutrophils % % Lymphocytes % % Monocytes % % Eosinophils % % Basophils % % Neutrophils # (1.6-8.9) K/mcL Lymphocytes # (0.6-4.6) K/mcL Monocytes # (0.0-1.3) K/mcL Eosinophils # (0.0-0.6) K/mcL Basophils # (0.0-0.2) K/mcL Immature Plt Fraction (1.1-6.1) % PT (9.4-12.1) Seconds INR APTT (26.0-36.0) Seconds Sodium (136-145) mEq/L Potassium (3.5-4.5) mEq/L Chloride (98-109) mEq/L Carbon Dioxide (19-29) mEq/L BUN (7-20) mg/dL Creatinine (0.57-1.11) mg/dL Est GFR ( Amer) (> 60) Est GFR (Non-Af Amer) (> 60) BUN/Creatinine Ratio (6-26) Glucose (70-99) mg/dL Calculated Osmolality (280-300) Lactic Acid 1.2 (0.5-2.2) mmol/L Calcium (8.6-10.8) mg/dL Phosphorus (2.3-4.7) mg/dL Magnesium (1.6-2.6) mg/dL Total Bilirubin (0.2-1.2) mg/dL Direct Bilirubin (0.0-0.5) mg/dL Indirect Bilirubin (0.0-1.2) mg/dL AST (5-34) Units/L ALT (0-55) Units/L Alkaline Phosphatase (38-126) Units/L Troponin I 0.02 (0-0.03) ng/mL Serum Total Protein (6.0-8.3) g/dL Albumin (3.5-5.0) g/dL Globulin (2.4-3.5) g/dL Albumin/Globulin Ratio (1.1-2.2) - Radiology Data Radiology results reviewed: Yes I reviewed the patient's radiology results. - EKG Data EKG attestation: Yes I reviewed and interpreted this EKG. EKG results narrative: EKG done at 0 159 review by myself and attending shows sinus tachycardia rate of 102, [place] interval 144, QRS 92, QTC 394 with a leftward axis. There is no acute ST changes other than [address] depression in leads V3 through V5., no acute T-wave abnormalities, no signs of any heart strain or hypertrophy, no signs of WPW/Brugada syndrome. Overall this is an unchanged EKG based on old one done 04/14/16. Attestation Statement - Attestation Attestation: I examined this patient and my medical decision-making was reviewed with the Resident Physician. I agree with the documented findings, disposition and treatment plan as described except to the extent set forth below. findings consistent with bronchitis. Patient also is febrile. Will be treated with broad-spectrum antibiotics, IV fluids, admission for further evaluation setting of systemic inflammatory response syndrome.
[2017-04-06 03:25] LABS: Hemoglobin 15.1 g/dL (11.5-15.4); Monocytes % 5.1 %
[2017-04-06 03:27] LABS: Basophils % 0.2 %; Eosinophils % 0.1 %; Hematocrit 45.8 % (35.3-44.9); Immature Granulocytes % 0.4 % (0-4); Immature Platelets 9.9 % (1.1-6.1); Lymphocytes # 1.3 K/mcL (0.6-4.6); Lymphocytes % 12.5 %; Mean Corpuscular Hemoglobin 28.1 pg (28.0-33.3); Mean Corpuscular Volume 85.3 fL (83.0-100.0); Mean Platelet Volume 11.8 fL (9.4-12.4); Monocytes # 0.6 K/mcL (0.0-1.3); Neutrophils # 8.7 K/mcL (1.6-8.9); Red Blood Count 5.37 M/mcL (3.82-4.97); Red Cell Distribution Width 14.8 % (11.5-14.5); Segmented Neutrophils % 81.7 %
[2017-04-06 03:32] LABS: INR 1.1; Prothrombin Time 11.3 Seconds (9.4-12.1)
[2017-04-06 03:35] LABS: Activated Partial Thrombo Time 26.7 Seconds (26.0-36.0)
[2017-04-06 03:40] LABS: Platelet Count 84 K/mcL (140-400)
[2017-04-06 03:41] LABS: Albumin 3.9 g/dL (3.5-5.0); Albumin/Globulin Ratio 1.3 (1.1-2.2); Bilirubin,Direct 0.3 mg/dL (0.0-0.5); Bilirubin,Indirect 0.4 mg/dL (0.0-1.2); Bilirubin,Total 0.7 mg/dL (0.2-1.2); Calcium 9.9 mg/dL (8.6-10.8); Magnesium 1.9 mg/dL (1.6-2.6); Potassium 4.1 mEq/L (3.5-4.5); Total Protein 6.9 g/dL (6.0-8.3)
[2017-04-06] MEDS ORDERED: traMADol 50 MG TABLET PO ONE (03:51)
[2017-04-06] MEDS ORDERED: Naloxone 0.4 MG/ML INJ IVP PRN (04:05)
[2017-04-06] MEDS ORDERED: *HR* Morphine 2 MG/ML SYRINGE IVP PRN (04:05)
[2017-04-06] MEDS ORDERED: Acetaminophen 325 MG TABLET PO PRN (04:05)
[2017-04-06] MEDS ORDERED: Ondansetron 4 MG/2 ML VIAL IVP PRN (04:05)
[2017-04-06] MEDS ORDERED: traMADol 50 MG TABLET PO PRN (04:10)
[2017-04-06] MEDS ORDERED: Loratadine 10 MG TABLET PO PRN (04:10)
[2017-04-06] MEDS ORDERED: 0.9 % Sodium Chloride 1,000 ML IVC SCH (04:15)
[2017-04-06] MEDS: 0.9 % Sodium Chloride 1,000 ML IVC SCH ×2 (04:30→06:50)
[2017-04-06] MEDS: Ipratropium/Albuterol Neb 3 ML IH SCH ×5 (04:46→20:20)
[2017-04-06 04:47] LABS: Bilirubin,Urine Negative (Negative); Blood,Urine Negative (Negative); Clarity,Urine Clear (Clear); Color,Urine Yellow (Yellow); Glucose,Urine (UA) Normal (Normal); Ketones,Urine 15 mg/dL (Negative); Leukocyte Esterase,Urine Negative (Negative); Nitrite,Urine Negative (Negative); Protein,Urine 100 mg/dL (Neg-Trace); Urobilinogen,Urine Normal (Normal)
[2017-04-06 04:49] LABS: Bacteria,Urine None Seen per hpf (None-Few); Hyaline Casts,Urine None Seen per lpf (None-Few); RBC,Urine 0-3 per hpf (0-3); Squamous Epithelial Cell,Urine Moderate per lpf (None-Few); WBC,Urine 0-3 per hpf (0-3)
--- NOTE | 2017-04-06 05:14 | Internal Med History&Physical ---
Date of Encounter: 04/06/17 Time of Encounter: 04:40 Assessment and Plan (1) Sepsis Current visit: Yes Status: Acute Will admit the pt into Tele She does meet sepsis criteria with sinus tachycardia, Fever and source of inf as bronchitis Pt was given Aztreonam in the ER> She is allergic to most of abx, so will cont Aztreonam for now sent for sputum cx, blood cx Also check strep pna, legionella, mycoplasma and Resp viral panel more concerned about Influenza started her on gentle IV hydration cont close monitoring Qualifiers: Qualified Code(s): A41.9 - Sepsis, unspecified organism (2) Acute respiratory failure with hypoxia Current visit: Yes Status: Acute She is currently on 2 lit O2 and maintaining SPo2 in low 90's cont O2 (3) Acute bronchitis Current visit: Yes Status: Acute mostly due to flu.. supra infected with Bacteria Cont empirical abx Aztreonam Qualifiers: Qualified Code(s): J20.9 - Acute bronchitis, unspecified (4) COPD exacerbation Current visit: Yes Status: Acute Duoneb + IV steroids (5) Chronic ITP (idiopathic thrombocytopenia) Current visit: Yes Status: Acute stable Platelets seems to be she is on chronic tapering PO steroid therapy (6) HTN (hypertension) Current visit: No Status: Acute resumed home meds Qualifiers: Hypertension type: unspecified secondary hypertension Qualified Code(s): I15.9 - Secondary hypertension, unspecified; I15 - Secondary hypertension (7) CKD (chronic kidney disease) stage 3, GFR 30-59 ml/min Current visit: Yes Status: Chronic stable (8) ERICA (obstructive sleep apnea) Current visit: No Status: Chronic (9) Hyperlipidemia Current visit: No Status: Acute on statin Qualifiers: Hyperlipidemia type: unspecified Qualified Code(s): E78.5 - Hyperlipidemia , unspecified Internal Medicine - H&P: HPI Chief complaint: Shortness of breath amd Cough Admitted From: Emergency Dept Plans for Post Hospital Care: Home History of present illness: Ms. Roland is a 86 year old female with known PMH of CKD-3, HTN, HLD, DJD, Fibromyalgia, ITP on Prednisone therapy, who presented to the emergency department complaining of Fever, Chills, Generalized body aches , shortness of breath and cough with purulent sputum from last 5 days. Patient does live at home by herself. She c/o mild chest pain due to cough and congestion. Past Med Surg Social Fam HX - Past Medical History Medical history: arthritis, hyperlipidemia, hypertension, renal disease, other Psychiatric history: anxiety, depression - Past Surgical History Surgical History: knee replacement, orthopedic, other, other - Social History Smoking Status: Never smoker Smokeless Tobacco Status: No Alcohol use: none Drug use: none - Family History Mother Hx Family Cardiac Disorders: Yes (HTN) Internal Medicine - H&P: Meds Fluticasone Propionate Nasal [Flonase] 2 spray NS DAILY 04/18/16 [History] Gabapentin [Neurontin] 300 mg PO TID 04/18/16 [History] Lisinopril [Zestril] 20 mg PO DAILY 04/18/16 [History] Loperamide [Imodium] 2 mg PO Q4HR PRN 04/18/16 [History] Metoprolol Succinate 100 mg PO DAILY 04/18/16 [History] Multivitamin [One Daily Essential] 1 tab PO DAILY 04/18/16 [History] Omeprazole [PriLOSEC] 40 mg PO DAILY 04/18/16 [History] Ondansetron HCl [Zofran] 4 mg PO Q6HR PRN 04/18/16 [History] Tramadol HCl [Ultram] 100 mg PO BID PRN 04/18/16 [History] Vit C/E/Zn/Coppr/Lutein/Zeaxan [Ocuvite Lutein & Zeaxanthin Cp] 1 cap PO DAILY 04/18/16 [History] amLODIPine [Norvasc] 5 mg PO DAILY 04/18/16 [History] Loratadine [Claritin] 10 mg PO DAILY PRN 07/01/16 [History] Sertraline [Zoloft] 25 mg PO DAILY #30 tablet 07/23/16 [Rx] Temazepam [Restoril] 7.5 mg PO HS 07/23/16 [History] predniSONE [PredniSONE] 20 mg PO AD 07/23/16 [History] HYDROcodone/Acet 5/325 mg [[place] 5-325 mg] 1 tab PO Q6HR PRN #15 tablet [Rx] 3 Allergy/AdvReac Type Severity Reaction Status Date / Time aspirin Allergy Nausea Verified 04/06/17 02:04 cefdinir Allergy UNKNOWN Verified 04/06/17 02:04 ciprofloxacin Allergy Anaphylaxis Verified 04/06/17 02:04 codeine Allergy "MADE ME Verified 04/06/17 02:04 CRAZY" morphine Allergy N/V Verified 04/06/17 02:04 Sulfa (Sulfonamide Allergy UNEFFECTIVE Verified 04/06/17 02:04 Antibiotics) Oxycodone AdvReac "DON'T Verified 04/06/17 02:04 LIKE THE WAY IT MAKES ME FEEL" All Systems PM: A 10-system review of systems was performed and is negative for pertinent findings except as documented above in the HPI. Review of systems: All the systems are reviewed everything is benign except the systems and symptoms I mentioned in the history of present illness - Constitutional Vitals: Temp Pulse Resp BP Pulse Ox 100.3 F H 108 18 135/95 96 04/06/17 02:06 04/06/17 04:40 04/06/17 04:40 04/06/17 04:40 04/06/17 04:40 General appearance: Present: A&O X 3, no acute distress, answers questions appropriately - Head Head exam: Present: atraumatic, normal inspection - Neck Neck exam general surgery: Present: supple - Respiratory Respiratory exam: Present: decreased breath sounds, respiratory distress (mild) , rhonchi (mild), wheezes (moderate to severe). Absent: rales - Cardiovascular Cardiovascular exam: Present: +S1, +S2, tachycardia - GI/Abdominal GI/Abdominal exam: Present: normal bowel sounds, soft. Absent: rebound, rigid, tenderness - Extremities Exam Extremities exam: Absent: calf tenderness, pedal edema, tenderness - Back Exam Back exam: Absent: CVA tenderness (L), CVA tenderness (R) - Neurological Exam Neurological exam: Present: alert, oriented X3 - Psychiatric Psychiatric exam: Present: normal affect, normal mood - Skin Skin exam: Absent: rash Internal Med - H&P Results - Labs CBC & Chem 7: 04/06/17 03:11 04/06/17 03:11 Labs: Urine 04/06/17 Range/Units 04:35 Urine Color Yellow (Yellow) Urine Clarity Clear (Clear) Urine pH 7.0 (5.0-8.0) pH Units Ur Specific [place] 1.020 (1.010-1.025) Urine Protein 100 H (Neg-Trace) mg/dL Urine Glucose (UA) Normal (Normal) mg/dL
[2017-04-06] MEDS ORDERED: Levofloxacin 750 MG/150 ML 750 MG/150 ML BAG IVPB SCH (09:00)
[2017-04-06] MEDS ORDERED: [UNRECOGNIZED DRUG - OTHER] PO SCH (09:00)
[2017-04-06] MEDS ORDERED: Gabapentin 300 MG CAPSULE PO SCH (09:00)
[2017-04-06] MEDS: Metoprolol XL (24 HR) Succ 50 MG TAB.ER.24H PO SCH (09:12)
[2017-04-06] MEDS: Lisinopril 20 MG TABLET PO SCH (09:13)
[2017-04-06] MEDS: Vancomycin 1,000 MG in D5% in Water 250 ML IVPB SCH (09:13)
[2017-04-06] MEDS: Multivit/Ca/Min/Fe/FA 1 TAB TABLET PO SCH (09:13)
[2017-04-06] MEDS: MethylPREDNISolone 40 MG/ML VIAL IVP SCH ×3 (09:13→23:43)
[2017-04-06] MEDS: amLODIPine 5 MG TABLET PO SCH (09:14)
[2017-04-06] MEDS: Fluticasone Propionate Nasal 50 MCG/SPRAY BOTTLE NS SCH (09:22)
--- NOTE | 2017-04-06 11:52 | Internal Med Progress Note ---
Date of Encounter: 04/06/17 Time of Encounter: 11:05 - Subjective Interval history: Patient is an 85y/o female admitted for sepsis secondary to bacterial bronchitis , and COPD exacerbation. Patient seen and examined at bedside. Currently resting in bed and saturating well on nasal cannula. Noted to have b/l expiratory wheezing with decreased inspiratory effort will continue empiric IV abx, IV steroids, and bronchodilator support continuous pulse ox O2 supplementation bipap support as needed labs adn vitals reviewed BP within acceptable range, continue home medications. ICD for DVT ppx given hx of chronic ITP - Constitutional Vitals: Temp Pulse Resp BP Pulse Ox 99.4 F 94 18 127/73 94 04/06/17 11:14 04/06/17 11:14 04/06/17 11:23 04/06/17 11:14 04/06/17 11:23 General appearance: Present: A&O X 3, no acute distress, answers questions appropriately Internal Medicine: Result - Labs CBC & Chem 7: 04/06/17 03:11 04/06/17 03:11 Labs: Urine 04/06/17 Range/Units 04:35 Urine Color Yellow (Yellow) Urine Clarity Clear (Clear) Urine pH 7.0 (5.0-8.0) pH Units Ur Specific [place] 1.020 (1.010-1.025) Urine Protein 100 H (Neg-Trace) mg/dL Urine Glucose (UA) Normal (Normal) mg/dL - ABG Interpretation ABG results: PT/INR, D-dimer PT 11.3 Seconds (9.4-12.1) 04/06/17 03:11 Consult Discharge Plan - Plan Referrals: Brionna Baum DO [Primary Care Provider] - (web request sent on 04/06/17 )
[2017-04-06] MEDS: Piperacillin/Tazobactam 3.375 GM/200 ML BAG IVPB SCH ×2 (16:20→23:46)
[2017-04-06] MEDS ORDERED: Aztreonam 1,000 MG in Water for inj. (sterile) 10 ML IVP SCH (18:00)
[2017-04-06] MEDS: traMADol 50 MG TABLET PO PRN (18:28)
[2017-04-06] MEDS: Gabapentin 300 MG CAPSULE PO SCH (21:05)
[2017-04-07] MEDS: Ipratropium/Albuterol Neb 3 ML IH SCH ×6 (00:27→21:19)
[2017-04-07] MEDS: traMADol 50 MG TABLET PO PRN ×3 (00:29→20:19)
[2017-04-07 07:05] LABS: Basophils % 0.1 %; Hemoglobin 14.1 g/dL (11.5-15.4); Immature Granulocytes % 0.6 % (0-4); Red Cell Distribution Width 14.8 % (11.5-14.5)
[2017-04-07 07:07] LABS: Hematocrit 43.7 % (35.3-44.9); Immature Platelets 7.8 % (1.1-6.1); Lymphocytes # 0.6 K/mcL (0.6-4.6); Lymphocytes % 7.1 %; Mean Corpuscular HGB Conc 32.3 g/dL (31.6-35.5); Mean Corpuscular Hemoglobin 28.5 pg (28.0-33.3); Mean Corpuscular Volume 88.3 fL (83.0-100.0); Mean Platelet Volume 11.9 fL (9.4-12.4); Monocytes # 0.3 K/mcL (0.0-1.3); Monocytes % 3.5 %; Neutrophils # 7.5 K/mcL (1.6-8.9); Red Blood Count 4.95 M/mcL (3.82-4.97); Segmented Neutrophils % 88.7 %
[2017-04-07 07:18] LABS: Magnesium 2.2 mg/dL (1.6-2.6); Phosphorous 3.1 mg/dL (2.3-4.7)
[2017-04-07 07:20] LABS: Calcium 9.8 mg/dL (8.6-10.8); Potassium 4.5 mEq/L (3.5-4.5)
[2017-04-07 07:24] LABS: Platelet Count 82 K/mcL (140-400)
[2017-04-07] MEDS ORDERED: Aminoglycoside Consult 1 EACH MC ONE (08:18)
[2017-04-07] MEDS: MethylPREDNISolone 40 MG/ML VIAL IVP SCH (09:45)
[2017-04-07] MEDS: Vancomycin 1,000 MG in D5% in Water 250 ML IVPB SCH (09:45)
[2017-04-07] MEDS: Lisinopril 20 MG TABLET PO SCH (09:46)
[2017-04-07] MEDS: amLODIPine 5 MG TABLET PO SCH (09:46)
[2017-04-07] MEDS: Multivit/Ca/Min/Fe/FA 1 TAB TABLET PO SCH (09:46)
[2017-04-07] MEDS: Gabapentin 300 MG CAPSULE PO SCH ×2 (09:46→20:18)
[2017-04-07] MEDS: Metoprolol XL (24 HR) Succ 50 MG TAB.ER.24H PO SCH (09:46)
[2017-04-07] MEDS: Fluticasone Propionate Nasal 50 MCG/SPRAY BOTTLE NS SCH (09:46)
[2017-04-07] MEDS: Piperacillin/Tazobactam 3.375 GM/200 ML BAG IVPB SCH ×2 (11:27→17:02)
--- NOTE | 2017-04-07 11:47 | Electrocardiograph Report ---
[place] [id number] Test Date: 2017-04-06 Pat Name: Jamia Roland Department: 104 Room: 2A43 Gender: F Mail Censor: LAKESHA : 1930 Requested By: Cecilio Sanders Order Number: [id number] Reading MD: Niko Desai DO Measurements Intervals [place] Rate: 102 P: 71 NE: 144 QRS: -45 QRSD: 92 T: 76 QT: 335 QTc: 394 Interpretive Statements SINUS TACHYCARDIA WITH A PVC LEFT ANTERIOR FASCICULAR BLOCK NONSPECIFIC ST & T-WAVE ABNORMALITY Electronically Signed On 04-07-2017 11:45:39 EST by Niko Desai DO
--- NOTE | 2017-04-07 15:34 | Internal Med Progress Note ---
Date of Encounter: 04/07/17 Time of Encounter: 14:50 - Assessment and plan (1) Acute respiratory failure with hypoxia Current Visit: Yes Status: Acute Assessment and plan: secondary to copd exacerbation and bronchitis continue systemic steroids, decreased solumedrol to 40mg IV q12h, will start Prednisone in am bronchodilator support O2 supplementation monitor O2 sat, goal O2 sat: 88-92% continue Zosyn, discontinued Vancomycin f/u blood cultures will closely monitor respiratory status (2) COPD exacerbation Current Visit: Yes Status: Acute Assessment and plan: as listed (3) Sepsis Current Visit: Yes Status: Acute Assessment and plan: clinically improving will continue empiric IV abx therapy Qualifiers: Sepsis type: sepsis due to unspecified organism Qualified Code(s): A41.9 - Sepsis, unspecified organism (4) Acute bronchitis Current Visit: Yes Status: Acute Assessment and plan: continue abx clinically improving Qualifiers: Qualified Code(s): J20.9 - Acute bronchitis, unspecified (5) Chronic ITP (idiopathic thrombocytopenia) Current Visit: Yes Status: Chronic Assessment and plan: stable platelets pt reported of being on chronic steroid taper (6) HTN (hypertension) Current Visit: No Status: Acute Assessment and plan: BP within acceptable range continue home meds Qualifiers: Hypertension type: essential hypertension Qualified Code(s): I10 - Essential (primary) hypertension (7) CKD (chronic kidney disease) stage 3, GFR 30-59 ml/min Current Visit: Yes Status: Chronic Assessment and plan: renal function at baseline continue to monitor (8) DVT prophylaxis Current Visit: Yes Status: Acute Assessment and plan: SCD - Subjective Interval history: Patient is an 85y/o female admitted for sepsis secondary to bacterial bronchitis , and COPD exacerbation. Patient seen and examined at bedside. Currently resting in bed and saturating well on nasal cannula. Reports of feeling better compared to previous day Pt encouraged to get out of bed with assistance PT/OT evaluation requested - Constitutional Vitals: Temp Pulse Resp BP Pulse Ox 97.6 F 97 20 141/72 98 04/07/17 12:55 04/07/17 12:55 04/07/17 12:55 04/07/17 12:55 04/07/17 12:55 General appearance: Present: A&O X 3, no acute distress, answers questions appropriately - Head Head exam: Present: atraumatic, normocephalic - Eye Eye exam: Present: conjuntiva pink, sclera anicteric - Respiratory Respiratory exam: Present: wheezes (b/l expiratory wheezing, equal air entry bilaterally). Absent: respiratory distress - Cardiovascular Cardiovascular exam: Present: RRR, +S1, +S2. Absent: diastolic murmur, gallop, rubs, systolic murmur - GI/Abdominal GI/Abdominal exam: Present: normal bowel sounds, soft, no peritoneal signs. Absent: distended, tenderness - Extremities Exam Extremities exam: Present: warm, radial pulses palpable and symmetrical. Absent : calf tenderness, pedal edema - Neurological Exam Neurological exam: Present: alert, oriented X3 - Psychiatric Psychiatric exam: Present: normal affect, normal mood Internal Medicine: Result - Labs CBC & Chem 7: 04/07/17 06:29 04/07/17 06:29 Labs: Short CBC 04/07/17 Range/Units 06:29 WBC 8.5 (4.3-11.1) K/mcL Hgb 14.1 (11.5-15.4) g/dL Hct 43.7 (35.3-44.9) % Plt Count 82 L (140-400) K/mcL Neutrophils # 7.5 (1.6-8.9) K/mcL BMP 04/07/17 06:29 Sodium 138 Potassium 4.5 Chloride 107 Carbon Dioxide 21 BUN 16 Creatinine 1.23 H Glucose 169 H Calcium 9.8 - ABG Interpretation ABG results: PT/INR, D-dimer PT 11.3 Seconds (9.4-12.1) 04/06/17 03:11 Consult Discharge Plan - Plan Referrals: Brionna Baum DO [Primary Care Provider] - (web request sent on 04/06/17 )
[2017-04-07] MEDS ORDERED: MethylPREDNISolone 40 MG/ML VIAL IVP SCH (18:00)
[2017-04-07] MEDS ORDERED: *HR* Labetalol 20 MG/4 ML SYRINGE IVP PRN (21:51)
[2017-04-07] MEDS: *HR* HYDROcodone/Acet 5/325 mg TABLET PO PRN (22:43)
[2017-04-08] MEDS: Piperacillin/Tazobactam 3.375 GM/200 ML BAG IVPB SCH ×3 (00:02→15:26)
[2017-04-08] MEDS: Ipratropium/Albuterol Neb 3 ML IH SCH ×6 (00:20→19:31)
[2017-04-08] MEDS: *HR* HYDROcodone/Acet 5/325 mg TABLET PO PRN (05:22)
[2017-04-08 07:15] LABS: Basophils % 0.1 %; Hematocrit 41.1 % (35.3-44.9); Hemoglobin 12.9 g/dL (11.5-15.4); Immature Granulocytes % 0.6 % (0-4); Lymphocytes % 6.4 %; Mean Corpuscular HGB Conc 31.4 g/dL (31.6-35.5); Mean Corpuscular Hemoglobin 27.6 pg (28.0-33.3); Mean Platelet Volume 11.9 fL (9.4-12.4); Monocytes # 1.3 K/mcL (0.0-1.3); Monocytes % 8.3 %; Neutrophils # 13.7 K/mcL (1.6-8.9); Platelet Count 109 K/mcL (140-400); Red Blood Count 4.67 M/mcL (3.82-4.97); Red Cell Distribution Width 15.2 % (11.5-14.5); Segmented Neutrophils % 84.6 %
[2017-04-08 07:52] LABS: Mycoplasma pneumoniae IgG 0.13 U/L (<=0.09)
[2017-04-08 08:17] LABS: Calcium 9.4 mg/dL (8.6-10.3); Magnesium 2.1 mg/dL (1.6-2.6); Phosphorous 2.9 mg/dL (2.7-4.5); Potassium 4.7 mEq/L (3.5-5.1)
[2017-04-08] MEDS: Multivit/Ca/Min/Fe/FA 1 TAB TABLET PO SCH (09:23)
[2017-04-08] MEDS: predniSONE 20 MG TABLET PO SCH (09:24)
[2017-04-08] MEDS: Gabapentin 300 MG CAPSULE PO SCH ×2 (09:24→21:20)
[2017-04-08] MEDS: Lisinopril 20 MG TABLET PO SCH (09:24)
[2017-04-08] MEDS: Metoprolol XL (24 HR) Succ 50 MG TAB.ER.24H PO SCH (09:24)
[2017-04-08] MEDS: amLODIPine 5 MG TABLET PO SCH (09:24)
--- NOTE | 2017-04-08 10:57 | Internal Med Progress Note ---
Date of Encounter: 04/08/17 Time of Encounter: 10:40 - Assessment and plan (1) Acute respiratory failure with hypoxia Current Visit: Yes Status: Acute Assessment and plan: secondary to copd exacerbation and bronchitis continue systemic steroids, started Prednisone 40mg PO qd (start: 04/08/17) bronchodilator support O2 supplementation monitor O2 sat, goal O2 sat: 88-92% continue Zosyn,will de-escalate to PO abx in am blood cultures prelim reports No growth will closely monitor respiratory status (2) COPD exacerbation Current Visit: Yes Status: Acute Assessment and plan: as listed (3) Sepsis Current Visit: Yes Status: Acute Assessment and plan: clinically improving will continue empiric IV abx therapy Qualifiers: Sepsis type: sepsis due to unspecified organism Qualified Code(s): A41.9 - Sepsis, unspecified organism (4) Acute bronchitis Current Visit: Yes Status: Acute Assessment and plan: continue abx clinically improving Qualifiers: Qualified Code(s): J20.9 - Acute bronchitis, unspecified (5) Chronic ITP (idiopathic thrombocytopenia) Current Visit: Yes Status: Chronic Assessment and plan: stable platelets pt reported of being on chronic steroid taper (6) HTN (hypertension) Current Visit: No Status: Acute Assessment and plan: BP within acceptable range continue home meds Qualifiers: Hypertension type: essential hypertension Qualified Code(s): I10 - Essential (primary) hypertension (7) CKD (chronic kidney disease) stage 3, GFR 30-59 ml/min Current Visit: Yes Status: Chronic Assessment and plan: renal function at baseline continue to monitor (8) DVT prophylaxis Current Visit: Yes Status: Acute Assessment and plan: SCD - Subjective Interval history: Patient is an 85y/o female admitted for sepsis secondary to bacterial bronchitis , and COPD exacerbation. Patient seen and examined at bedside. Currently resting in chair and saturating well on nasal cannula. Reports of feeling better compared to previous day Started on PO prednisone today, will monitor response to therapy today and likely d/c in am if remains clinically stable - Constitutional Vitals: Temp Pulse Resp BP Pulse Ox 97.7 F 80 16 131/71 96 04/08/17 07:01 04/08/17 07:01 04/08/17 07:49 04/08/17 07:01 04/08/17 09:26 General appearance: Present: cooperative, A&O X 3, pleasant, no acute distress, answers questions appropriately - Head Head exam: Present: atraumatic, normocephalic - Eye Eye exam: Present: conjuntiva pink, sclera anicteric - Respiratory Respiratory exam: Present: decreased breath sounds, wheezes (mild b/l wheezing) . Absent: respiratory distress - Cardiovascular Cardiovascular exam: Present: RRR, +S1, +S2. Absent: diastolic murmur, gallop, rubs, systolic murmur - GI/Abdominal GI/Abdominal exam: Present: normal bowel sounds, soft, no peritoneal signs. Absent: distended, tenderness - Extremities Exam Extremities exam: Present: warm, radial pulses palpable and symmetrical. Absent : calf tenderness, pedal edema - Neurological Exam Neurological exam: Present: alert, oriented X3 - Psychiatric Psychiatric exam: Present: normal affect, normal mood Internal Medicine: Result - Labs CBC & Chem 7: 04/08/17 06:50 04/08/17 06:50 Labs: Short CBC 04/08/17 Range/Units 06:50 WBC 16.2 H D (4.3-11.1) K/mcL Hgb 12.9 (11.5-15.4) g/dL Hct 41.1 (35.3-44.9) % Plt Count 109 L (140-400) K/mcL Neutrophils # 13.7 H (1.6-8.9) K/mcL BMP 04/08/17 06:50 Sodium 139 Potassium 4.7 Chloride 107 Carbon Dioxide 27 BUN 24 H Creatinine 1.26 H Glucose 129 H Calcium 9.4 - ABG Interpretation ABG results: PT/INR, D-dimer PT 11.3 Seconds (9.4-12.1) 04/06/17 03:11 Consult Discharge Plan - Plan Referrals: Brionna Baum DO [Primary Care Provider] - (web request sent on 04/06/17 )
[2017-04-08] MEDS: Fluticasone Propionate Nasal 50 MCG/SPRAY BOTTLE NS SCH (11:47)
[2017-04-08] MEDS: MethylPREDNISolone 40 MG/ML VIAL IVP SCH ×2 (17:03→17:04)
[2017-04-08] MEDS: traMADol 50 MG TABLET PO PRN (21:19)
[2017-04-09] MEDS: Ipratropium/Albuterol Neb 3 ML IH SCH ×4 (00:04→11:02)
[2017-04-09] MEDS: Piperacillin/Tazobactam 3.375 GM/200 ML BAG IVPB SCH ×2 (00:16→08:20)
[2017-04-09] MEDS: *HR* HYDROcodone/Acet 5/325 mg TABLET PO PRN (00:21)
[2017-04-09] MEDS ORDERED: Menthol 9.1 MG LOZENGE PO PRN (04:36)
[2017-04-09 05:14] LABS: Basophils % 0.1 %; Hematocrit 38.7 % (35.3-44.9); Hemoglobin 12.5 g/dL (11.5-15.4); Immature Granulocytes % 0.6 % (0-4); Lymphocytes # 0.8 K/mcL (0.6-4.6); Mean Corpuscular HGB Conc 32.3 g/dL (31.6-35.5); Mean Corpuscular Hemoglobin 28.6 pg (28.0-33.3); Mean Corpuscular Volume 88.6 fL (83.0-100.0); Mean Platelet Volume 11.8 fL (9.4-12.4); Monocytes # 0.7 K/mcL (0.0-1.3); Monocytes % 6.1 %; Neutrophils # 9.8 K/mcL (1.6-8.9); Platelet Count 112 K/mcL (140-400); Red Blood Count 4.37 M/mcL (3.82-4.97); Red Cell Distribution Width 15.3 % (11.5-14.5); Segmented Neutrophils % 86.2 %
[2017-04-09 05:45] LABS: Calcium 9.1 mg/dL (8.6-10.3); Magnesium 2.1 mg/dL (1.6-2.6); Phosphorous 2.7 mg/dL (2.7-4.5)
[2017-04-09] MEDS: MethylPREDNISolone 40 MG/ML VIAL IVP SCH (06:30)
[2017-04-09] MEDS: traMADol 50 MG TABLET PO PRN (06:41)
[2017-04-09] MEDS: Fluticasone Propionate Nasal 50 MCG/SPRAY BOTTLE NS SCH (08:18)
[2017-04-09] MEDS: amLODIPine 5 MG TABLET PO SCH (08:19)
[2017-04-09] MEDS: Metoprolol XL (24 HR) Succ 50 MG TAB.ER.24H PO SCH (08:19)
[2017-04-09] MEDS: predniSONE 20 MG TABLET PO SCH (08:19)
[2017-04-09] MEDS: Multivit/Ca/Min/Fe/FA 1 TAB TABLET PO SCH (08:19)
[2017-04-09] MEDS: Gabapentin 300 MG CAPSULE PO SCH (08:20)
[2017-04-09] MEDS: Lisinopril 20 MG TABLET PO SCH (08:20)
[2017-04-09 11:16] VITALS: BP 133/77
--- NOTE | 2017-04-09 12:18 | Discharge Summary ---
Date of Encounter: 04/09/17 Time of Encounter: 11:15 - Discharge Diagnosis (1) Acute respiratory failure with hypoxia Priority: Primary Status: Resolved (2) COPD exacerbation Priority: Secondary Status: Acute (3) Sepsis Priority: Secondary Status: Resolved Qualifiers: Sepsis type: sepsis due to unspecified organism Qualified Code(s): A41.9 - Sepsis, unspecified organism (4) Acute bronchitis Priority: Secondary Status: Acute Qualifiers: Qualified Code(s): J20.9 - Acute bronchitis, unspecified (5) Chronic ITP (idiopathic thrombocytopenia) Priority: Secondary Status: Chronic (6) HTN (hypertension) Priority: Secondary Status: Acute Qualifiers: Hypertension type: essential hypertension Qualified Code(s): I10 - Essential (primary) hypertension (7) CKD (chronic kidney disease) stage 3, GFR 30-59 ml/min Priority: Secondary Status: Chronic (8) DVT prophylaxis Priority: Secondary Status: Acute - Discharge Medications Prescriptions: Amoxicillin/Clavulanate [Augmentin] 500 mg PO BIDWM #7 tablet Home Medications: RX: Fluticasone Propionate Nasal [Flonase] 2 spray NS DAILY 04/18/16 [History] RX: Gabapentin [Neurontin] 300 mg PO BID 04/18/16 [History] RX: Lisinopril [Zestril] 20 mg PO DAILY 04/18/16 [History] RX: Metoprolol Succinate 100 mg PO DAILY 04/18/16 [History] RX: Multivitamin [One Daily Essential] 1 tab PO DAILY 04/18/16 [History] RX: Omeprazole [PriLOSEC] 40 mg PO DAILY 04/18/16 [History] RX: Tramadol HCl [Ultram] 100 mg PO Q8H PRN 04/18/16 [History] RX: Vit C/E/Zn/Coppr/Lutein/Zeaxan [Ocuvite Lutein & Zeaxanthin Cp] 1 cap PO DAILY 04/18/16 [History] RX: Loratadine [Claritin] 10 mg PO DAILY 07/01/16 [History] RX: Lactobacillus Combination No.8 [Adult Probiotic] 2 cap PO DAILY 04/06/17 [ History] RX: amLODIPine [Norvasc] 5 mg PO DAILY 04/06/17 [History] Amoxicillin/Clavulanate [Augmentin] 500 mg PO BIDWM #7 tablet 04/09/17 [Rx] RX: predniSONE [PredniSONE] 40 mg PO DAILY tablet 04/09/17 [Rx] Allergies/Adverse Reactions: 3 Allergy/AdvReac Type Severity Reaction Status Date / Time aspirin Allergy Nausea Verified 04/06/17 02:04 cefdinir Allergy UNKNOWN Verified 04/06/17 02:04 ciprofloxacin Allergy Anaphylaxis Verified 04/06/17 02:04 codeine Allergy "MADE ME Verified 04/06/17 02:04 CRAZY" morphine Allergy N/V Verified 04/06/17 02:04 Sulfa (Sulfonamide Allergy UNEFFECTIVE Verified 04/06/17 02:04 Antibiotics) Oxycodone AdvReac "DON'T Verified 04/06/17 02:04 LIKE THE WAY IT MAKES ME FEEL" Date of admission: 04/06/17 04:19 Primary care physician: Angelica Nieves Discharging clinician: Yen Kelsey Anticipated date of discharge: 04/09/17 - Patient Status Disposition: Home, Self-Care Condition: Good Functional capacity at discharge: independent ambulation Overall status at discharge: patient is back to baseline - Discharge Instructions Follow Up With: Brionna Baum DO [Primary Care Provider] - (web request sent on 04/06/17 ) Additional Instructions: Please follow up with your primary care physician within five days after your discharge from the hospital. Please follow up with pulmonology within one to two weeks after your discharge from the hospital. Please continue Prednisone as prescribed (long steroid taper) Please continue oral antibiotics as prescribed. Resume all other home medications as prescribed by your primary care physician. - Diet and Activity Activity: increase activity as tolerated Diet: low fat, low cholesterol, low salt diet Hospital course: Ms. Roland is a 86 year old female with PMH of CKD, HTN HLD, ITP who was admitted for acute respiratory distress secondary to COPD exacerbation and acute bronchitis. Pt was started on IV steroids, IV abx, and bronchodilator support. Pt responded well to therapy and is currently back to baseline Oxygenation. 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 Pt is to continue on long steroid taper and finish 7 days of abx. Pt demonstrates understanding of her diagnosis and agrees with her discharge care and plan. - Time Spent with Patient Total time spent providing and/or coordinating discharge services: Greater than 30 minutes - Constitutional Vitals: Temp Pulse Resp BP Pulse Ox 97.6 F 74 16 133/77 100 04/09/17 11:15 04/09/17 11:15 04/09/17 11:15 04/09/17 11:15 04/09/17 11:15 General appearance: Present: cooperative, A&O X 3, pleasant, no acute distress, answers questions appropriately - Head Head exam: Present: atraumatic, normocephalic - Eye Eye exam: Present: conjuntiva pink, sclera anicteric - Respiratory Respiratory exam: Absent: respiratory distress, wheezes (equal air entry bilaterally ) - Cardiovascular Cardiovascular exam: Present: RRR, +S1, +S2. Absent: diastolic murmur, gallop, rubs, systolic murmur - GI/Abdominal GI/Abdominal exam: Present: normal bowel sounds, soft, no peritoneal signs. Absent: distended, tenderness - Extremities Exam Extremities exam: Present: warm, radial pulses palpable and symmetrical. Absent : calf tenderness - Neurological Exam Neurological exam: Present: alert, oriented X3
[2017-04-09] MEDS ORDERED: predniSONE 20 MG TABLET PO SCH (14:00)
[2017-04-09] MEDS ORDERED: Amoxicillin/Clavulanate 500 MG TABLET PO SCH (17:00)
== END 2017-04-09 16:00 | disposition home or self-care (01) | DRG 871 ==
LOC: EMEROO 02:03 → 2ANU 02:03 → SUATTDRO 04:19 → 2ANU 05:30
PROVIDERS: ADMIT Internal Medicine Hematology & Oncology; ATTEND Internal Medicine

== ENCOUNTER 2018-06-14 04:42 | Inpatient (IN) ==
--- NOTE | 2018-06-14 04:55 | Emergency Department Note ---
Disposition Clinical Impression: Dyspnea Qualifiers: Dyspnea type: unspecified Qualified Code(s): R06.00 - Dyspnea, unspecified Disposition: Still a Patient Condition: Good Referrals: NONE,PCP [Primary Care Provider] - Forms: ED Satisfaction Letter Time of Disposition: 07:24 General Adult HPI - General Chief complaint: ED Nausea/Vomiting/Diarrhea Stated complaint: N/V Time Seen by Provider: 06/14/18 04:48 Source: patient, EMS Limitations: no limitations Nursing Notes Reviewed: Yes Vital Signs Reviewed: Yes - History of Present Illness HPI Narrative: 87-year-old female arrives via squad from home with complaint of nausea and SOB. She mentions her was recently admitted for influenza and concerned that she might be getting the flu as well. She mentions she has had suprapubic abdominal pain for the past 2 days but has had it in the past as well. She denies any dysuria. She states she was having constipation but took a dulcolax last night and was able to have a bowel movement at that time. She reports she was coughing but is not coughing now. She reports she has an appointment at 1pm today for a scan to check for an aortic aneurysm. She denies any fever, vomiting, or any other complaints at this time. Pain Scale: 4 - Related Data Home Medications Medication Instructions Recorded Confirmed Fluticasone Propionate Nasal 2 spray NS DAILY 04/18/16 04/06/17 [Flonase] Gabapentin [Neurontin] 300 mg PO BID 04/18/16 04/06/17 Lisinopril [Zestril] 20 mg PO DAILY 04/18/16 04/06/17 Metoprolol Succinate 100 mg PO DAILY 04/18/16 04/06/17 Multivitamin [One Daily Essential] 1 tab PO DAILY 04/18/16 04/06/17 Omeprazole [PriLOSEC] 40 mg PO DAILY 04/18/16 04/06/17 Tramadol HCl [Ultram] 100 mg PO Q8H PRN 04/18/16 04/06/17 Vit C/E/Zn/Coppr/Lutein/Zeaxan 1 cap PO DAILY 04/18/16 04/06/17 [Ocuvite Lutein & Zeaxanthin Cp] Loratadine [Claritin] 10 mg PO DAILY 07/01/16 04/06/17 Lactobacillus Combination No.8 2 cap PO DAILY 04/06/17 04/06/17 [Adult Probiotic] amLODIPine [Norvasc] 5 mg PO DAILY 04/06/17 04/06/17 Previous Rx's Medication Instructions Recorded Amoxicillin/Clavulanate [Augmentin] 500 mg PO BIDWM #7 tablet 04/09/17 predniSONE [PredniSONE] 40 mg PO DAILY tablet 04/09/17 GuaiFENesin ER [Mucinex] 600 mg PO BID #10 tbbp.12hr 05/18/17 Allergies Allergy/AdvReac Type Severity Reaction Status Date / Time aspirin Allergy Nausea Verified 05/18/17 11:11 cefdinir Allergy UNKNOWN Verified 05/18/17 11:11 ciprofloxacin Allergy Anaphylaxis Verified 05/18/17 11:11 codeine Allergy "MADE ME Verified 05/18/17 11:11 CRAZY" morphine Allergy N/V Verified 05/18/17 11:11 Sulfa (Sulfonamide Allergy UNEFFECTIVE Verified 05/18/17 11:11 Antibiotics) oxycodone [Oxycodone] AdvReac "DON'T Verified 05/18/17 11:11 LIKE THE WAY IT MAKES ME FEEL" All systems ED: reviewed and negative except as stated. Review of Systems: As Per HPI Constitutional: Reports: as per HPI Eyes: Denies: eye pain ENT ED: Denies: ear pain Cardiovascular: Denies: chest pain Respiratory: Reports: dyspnea. Denies: cough Gastrointestinal: Reports: abdominal pain, nausea. Denies: vomiting, diarrhea Genitourinary: Denies: dysuria Musculoskeletal: Denies: back pain Integumentary: Denies: rash Neurological: Reports: as per HPI Endocrine: Denies: fatigue Hematological/Lymphatic: Denies: easy bleeding Allergic/Immunologic: Denies: facial swelling Past Medical History - Past Medical History Medical history: Reports: arthritis, hyperlipidemia, hypertension, renal disease, other Surgical history: Reports: knee replacement, orthopedic, other, other Psychiatric history: Reports: anxiety, depression - Social History Smoking Status: Never smoker Smokeless Tobacco Status: No Alcohol use: Reports: none Drug use: Reports: none Physical Exam - General Limitations: no limitations General appearance: alert, in no apparent distress - Head Head exam: normocephalic - Eye Eye exam: Present: EOMI. Absent: conjunctival injection - ENT ENT exam: mucous membranes moist - Neck Neck exam: Present: full ROM. Absent: tenderness - Chest Chest inspection: Present: symmetric chest wall rise - Respiratory Respiratory exam: Absent: respiratory distress - Cardiovascular Cardiovascular exam: Present: regular rate - Abdominal Exam Abdominal exam: Present: soft, tenderness Abdominal tenderness: Present: suprapubic - Extremities Exam Extremities exam: Present: normal capillary refill - Back Exam Back exam: Present: full ROM. Absent: CVA tenderness (R), CVA tenderness (L) - Neurological Exam Neurological exam: Present: alert - Psychiatric Psychiatric exam: Present: normal affect, normal mood - Skin Skin exam: Present: warm, dry, intact, normal color. Absent: rash, cyanosis, diaphoresis Course Course Narrative: 87-year-old female arrives via squad with multiple complaints. She mentions that she has had nausea and home, and was concerned that she might be developing fluids she mentions her has recently been admitted for flu. She also describes having shortness of breath this week. Additionally she has suprapubic pain 2 days. She also mentions she has been diagnosed with a aortic abdominal aneurysm is being monitored and that she has a CT scan planned for later today for this. She denies any chest pain, fever, near syncopal symptoms. - Reevaluation(s) Reevaluation #1: Due to care transfer. Care of this patient will be transferred over to Matt Lyon CNP. He will handle further evaluation and disposition of this patient. Please see his documentation for additional details. Time: 06:22 Vital Signs Temperature 100.4 F H 06/14/18 04:46 Pulse Rate 85 06/14/18 04:46 Respiratory Rate 18 06/14/18 04:46 Blood Pressure 156/84 06/14/18 04:46 O2 Sat by Pulse Oximetry 98 06/14/18 04:46 Temperature 100.4 F H 06/14/18 04:46 Pulse Rate 85 06/14/18 04:46 Respiratory Rate 18 06/14/18 04:46 Blood Pressure 156/84 06/14/18 04:46 O2 Sat by Pulse Oximetry 98 06/14/18 04:46 Oxygen Delivery Oxygen Delivery Room Air Medical Decision Making - Lab Data Result diagrams: 06/14/18 05:21 06/14/18 05:21 Lab Results 06/14/18 06/14/18 06/14/18 Range/Units 05:05 05:21 05:21 WBC 7.7 (4.3-11.1) K/mcL RBC 4.94 (3.82-4.97) M/mcL Hgb 13.8 (11.5-15.4) g/dL Hct 42.9 (35.3-44.9) % MCV 86.8 (83.0-100.0) fL MCH 27.9 L (28.0-33.3) pg MCHC 32.2 (31.6-35.5) g/dL RDW 13.6 (11.5-14.5) % Plt Count 111 L (140-400) K/mcL MPV 11.9 (9.4-12.4) fL Immature Gran % 0.3 (0-4) % Seg Neutrophils % 85.2 % Lymphocytes % 6.1 % Monocytes % 7.6 % Eosinophils % 0.5 % Basophils % 0.3 % Neutrophils # 6.5 (1.6-8.9) K/mcL Lymphocytes # 0.5 L (0.6-4.6) K/mcL Monocytes # 0.6 (0.0-1.3) K/mcL Eosinophils # 0.0 (0.0-0.6) K/mcL Basophils # 0.0 (0.0-0.2) K/mcL D-Dimer (0-500) ng/mLFEU Sodium 142 (136-145) mEq/L Potassium 4.1 (3.5-5.1) mEq/L Chloride 102 (98-107) mEq/L Carbon Dioxide 26 (23-29) mEq/L BUN 13 (8-23) mg/dL Creatinine 1.21 H (0.60-1.20) mg/dL Est GFR ( Amer) 51 L (> 60) Est GFR (Non-Af Amer) 42 L (> 60) BUN/Creatinine Ratio 11 (6-26) Glucose 125 H (70-105) mg/dL Calculated Osmolality 296 (280-300) Lactic Acid (0.5-2.2) mmol/L Calcium 9.8 (8.6-10.3) mg/dL Troponin I < 0.03 (< 0.04) ng/mL B-Natriuretic Peptide (Less than 100) pg/mL Urine Color Yellow (Yellow) Urine Clarity Clear (Clear) Urine pH 6.5 (5.0-8.0) pH Units Ur Specific [place] 1.019 (1.010-1.025) Urine Protein 100 H (Neg-Trace) mg/dL Urine Glucose (UA) Normal (Normal) mg/dL Urine Ketones Negative (Negative) mg/dL Urine Blood Negative (Negative) Urine Nitrite Negative (Negative) Urine Bilirubin Negative (Negative) Urine Urobilinogen Normal (Normal) mg/dL Ur Leukocyte Esterase Trace H (Negative) Urine Microscopic RBC 0-3 (0-3) per hpf Urine Microscopic WBC 5-15 H (0-3) per hpf Ur Squamous Epith Cells Many H (None-Few) per lpf Urine Bacteria None Seen (None-Few) per hpf Hyaline Casts None Seen (None-Few) per lpf Ur Culture Indicated? NO. A (NO) 06/14/18 06/14/18 06/14/18 Range/Units 05:21 05:21 05:50 WBC (4.3-11.1) K/mcL RBC (3.82-4.97) M/mcL Hgb (11.5-15.4) g/dL Hct (35.3-44.9) % MCV (83.0-100.0) fL MCH (28.0-33.3) pg MCHC (31.6-35.5) g/dL RDW (11.5-14.5) % Plt Count (140-400) K/mcL MPV (9.4-12.4) fL Immature Gran % (0-4) % Seg Neutrophils % % Lymphocytes % % Monocytes % % Eosinophils % % Basophils % % Neutrophils # (1.6-8.9) K/mcL Lymphocytes # (0.6-4.6) K/mcL Monocytes # (0.0-1.3) K/mcL Eosinophils # (0.0-0.6) K/mcL Basophils # (0.0-0.2) K/mcL D-Dimer 925 H (0-500) ng/mLFEU Sodium (136-145) mEq/L Potassium (3.5-5.1) mEq/L Chloride (98-107) mEq/L Carbon Dioxide (23-29) mEq/L BUN (8-23) mg/dL Creatinine (0.60-1.20) mg/dL Est GFR ( Amer) (> 60) Est GFR (Non-Af Amer) (> 60) BUN/Creatinine Ratio (6-26) Glucose (70-105) mg/dL Calculated Osmolality (280-300) Lactic Acid 1.6 (0.5-2.2) mmol/L Calcium (8.6-10.3) mg/dL Troponin I (< 0.04) ng/mL B-Natriuretic Peptide 568 H (Less than 100) pg/mL Urine Color (Yellow) Urine Clarity (Clear) Urine pH (5.0-8.0) pH Units Ur Specific [place] (1.010-1.025) Urine Protein (Neg-Trace) mg/dL Urine Glucose (UA) (Normal) mg/dL Urine Ketones (Negative) mg/dL Urine Blood (Negative) Urine Nitrite (Negative) Urine Bilirubin (Negative) Urine Urobilinogen (Normal) mg/dL Ur Leukocyte Esterase (Negative) Urine Microscopic RBC (0-3) per hpf Urine Microscopic WBC (0-3) per hpf Ur Squamous Epith Cells (None-Few) per lpf Urine Bacteria (None-Few) per hpf Hyaline Casts (None-Few) per lpf Ur Culture Indicated? (NO)
[2018-06-14 05:19] LABS: Bilirubin,Urine Negative (Negative); Blood,Urine Negative (Negative); Clarity,Urine Clear (Clear); Color,Urine Yellow (Yellow); Glucose,Urine (UA) Normal (Normal); Ketones,Urine Negative (Negative); Leukocyte Esterase,Urine Trace (Negative); Nitrite,Urine Negative (Negative); PH,Urine 6.5 pH Units (5.0-8.0); Protein,Urine 100 mg/dL (Neg-Trace); Specific Gravity,Urine 1.019 (1.010-1.025); Urobilinogen,Urine Normal (Normal)
[2018-06-14 05:21] LABS: Bacteria,Urine None Seen per hpf (None-Few); Hyaline Casts,Urine None Seen per lpf (None-Few); RBC,Urine 0-3 per hpf (0-3); Squamous Epithelial Cell,Urine Many per lpf (None-Few)
[2018-06-14 05:34] LABS: Basophils % 0.3 %; Eosinophils % 0.5 %; Hematocrit 42.9 % (35.3-44.9); Hemoglobin 13.8 g/dL (11.5-15.4); Immature Granulocytes % 0.3 % (0-4); Lymphocytes # 0.5 K/mcL (0.6-4.6); Lymphocytes % 6.1 %; Mean Corpuscular HGB Conc 32.2 g/dL (31.6-35.5); Mean Corpuscular Hemoglobin 27.9 pg (28.0-33.3); Mean Corpuscular Volume 86.8 fL (83.0-100.0); Mean Platelet Volume 11.9 fL (9.4-12.4); Monocytes # 0.6 K/mcL (0.0-1.3); Monocytes % 7.6 %; Neutrophils # 6.5 K/mcL (1.6-8.9); Platelet Count 111 K/mcL (140-400); Red Blood Count 4.94 M/mcL (3.82-4.97); Red Cell Distribution Width 13.6 % (11.5-14.5); Segmented Neutrophils % 85.2 %
[2018-06-14 05:55] LABS: BUN/Creatinine Ratio 11 (6-26); Blood Urea Nitrogen 13 mg/dL (8-23); Calcium 9.8 mg/dL (8.6-10.3); Carbon Dioxide 26 mEq/L (23-29); Chloride 102 mEq/L (98-107); Glucose 125 mg/dL (70-105); Osmolality,Calculated 296 (280-300); Potassium 4.1 mEq/L (3.5-5.1); Sodium 142 mEq/L (136-145); Troponin I < 0.03 ng/mL (< 0.04); eGFR For Non-African Americans 42 (> 60)
[2018-06-14] MEDS ORDERED: Isovue-370 500 ML BOTTLE IVP ONE (06:46)
--- NOTE | 2018-06-14 07:03 | Emergency Department Note ---
Disposition Clinical Impression: Lower abdominal pain, Nausea Dyspnea Qualifiers: Dyspnea type: unspecified Qualified Code(s): R06.00 - Dyspnea, unspecified Fever Qualifiers: Fever type: unspecified Qualified Code(s): R50.9 - Fever, unspecified Disposition: Admitted As Inpatient Condition: Good Referrals: NONE,PCP [Primary Care Provider] - Forms: ED Satisfaction Letter Time of Disposition: 10:19 General Adult HPI - General Chief complaint: ED Nausea/Vomiting/Diarrhea Stated complaint: N/V Time Seen by Provider: 06/14/18 04:48 Source: patient, EMS Limitations: no limitations - History of Present Illness Pain Scale: 4 - Related Data Home Medications Medication Instructions Recorded Confirmed Fluticasone Propionate Nasal 2 spray NS DAILY 04/18/16 04/06/17 [Flonase] Gabapentin [Neurontin] 300 mg PO BID 04/18/16 04/06/17 Lisinopril [Zestril] 20 mg PO DAILY 04/18/16 04/06/17 Metoprolol Succinate 100 mg PO DAILY 04/18/16 04/06/17 Multivitamin [One Daily Essential] 1 tab PO DAILY 04/18/16 04/06/17 Omeprazole [PriLOSEC] 40 mg PO DAILY 04/18/16 04/06/17 Tramadol HCl [Ultram] 100 mg PO Q8H PRN 04/18/16 04/06/17 Vit C/E/Zn/Coppr/Lutein/Zeaxan 1 cap PO DAILY 04/18/16 04/06/17 [Ocuvite Lutein & Zeaxanthin Cp] Loratadine [Claritin] 10 mg PO DAILY 07/01/16 04/06/17 Lactobacillus Combination No.8 2 cap PO DAILY 04/06/17 04/06/17 [Adult Probiotic] amLODIPine [Norvasc] 5 mg PO DAILY 04/06/17 04/06/17 Previous Rx's Medication Instructions Recorded Amoxicillin/Clavulanate [Augmentin] 500 mg PO BIDWM #7 tablet 04/09/17 predniSONE [PredniSONE] 40 mg PO DAILY tablet 04/09/17 GuaiFENesin ER [Mucinex] 600 mg PO BID #10 tbbp.12hr 05/18/17 Allergies Allergy/AdvReac Type Severity Reaction Status Date / Time aspirin Allergy Nausea Verified 05/18/17 11:11 cefdinir Allergy UNKNOWN Verified 05/18/17 11:11 ciprofloxacin Allergy Anaphylaxis Verified 05/18/17 11:11 codeine Allergy "MADE ME Verified 05/18/17 11:11 CRAZY" morphine Allergy N/V Verified 05/18/17 11:11 Sulfa (Sulfonamide Allergy UNEFFECTIVE Verified 05/18/17 11:11 Antibiotics) oxycodone [Oxycodone] AdvReac "DON'T Verified 05/18/17 11:11 LIKE THE WAY IT MAKES ME FEEL" Constitutional: Denies: fever Eyes: Denies: eye pain ENT ED: Denies: ear pain Cardiovascular: Denies: chest pain Respiratory: Reports: dyspnea. Denies: cough Gastrointestinal: Reports: abdominal pain, nausea. Denies: vomiting, diarrhea Past Medical History - Past Medical History Medical history: Reports: arthritis, hyperlipidemia, hypertension, renal disease, other Surgical history: Reports: knee replacement, orthopedic, other, other Psychiatric history: Reports: anxiety, depression - Social History Smoking Status: Never smoker Smokeless Tobacco Status: No Alcohol use: Reports: none Drug use: Reports: none Physical Exam - General Limitations: no limitations General appearance: alert, in no apparent distress Course Course Narrative: 0600: I have assumed care of this patient from FRANDY Prieto due to mid-level shift change. Please see Conenr's documentation for care performed prior to my arrival. Briefly, this is an alert and oriented nontoxic-appearing 87-year-old female who presented for multiple complaints. She complains of approximately 3 days worth of suprapubic abdominal discomfort, nausea, dyspnea, nonproductive cough. She stated that her is currently admitted to this facility for complications from influenza. She was concerned about the possibility of her having influenza as well. She denies any urinary complaints or overt chest pain. She denied any obvious fever. She denies any vomiting. She did allude to some constipation but stated that she took a Dulcolax tablet last night and was able to have a bowel movement. Laboratory workup pending at this time. est x-ray shows no acute cardiopulmonary abnormality. EKG showed a sinus rhythm at a rate of 83 bpm. NC interval 119, QRS duration 99, QT/QTc interval 392/461. No significant change in morphology when compared to an EKG dated from 05/18/17. The patient does have an ultrasound scheduled for today for routine surveillance of an aortic aneurysm which was scheduled by her cabinet installer, Dr Desai. 0620: Upon my evaluation, the patient's abdomen is soft, nondistended, and is no guarding, rigidity, or rebound tenderness. She does complain of diffuse tenderness with palpation throughout. Heart regular rhythm, regular rate. Lungs are clear to auscultation throughout. Mucous membranes slightly dry. After a lengthy conversation with the patient, the only acute finding aside from the 3 days worth of abdominal cramping is some pleuritic pain between her shoulder blades. Again, she denies any overt chest pain. She denies any hemoptysis. She denies any productive cough. She does state that she has been increasingly anxious for the past several days and does mention the fact that her is admitted to this facility on multiple occasions. CTA of the chest shows no acute pulmonary embolism. There is some questionable mucous plugging versus aspiration pneumonia. The patient did have a slight fever when she presented at 100.4 degrees Fahrenheit. She does complain of a nonproductive cough. She was began on Zosyn here in the emergency department for the CT findings. CT the abdomen and pelvis shows no acute findings that could attribute to the patient's complaints of lower abdominal cramping and nausea. Stable AAA. CT down and pelvis did recommend or some of the gall bladder for further evaluation. Gallbladder ultrasound showed sludge but no findings concerning for acute cholecystitis. I discussed these findings with Dr. Tate, ED attending. He recommends admission to the hospital service for further management. I discussed this plan with the patient and she has verbalized an understanding and agreement of this plan. 1015: I have spoken with Dr. Escamilla, admitting hospitalist who has accepted the patient for admission to the hospitalist care. Vital Signs Temperature 100.4 F H 06/14/18 04:46 Pulse Rate 85 06/14/18 04:46 Respiratory Rate 18 06/14/18 04:46 Blood Pressure 156/84 06/14/18 04:46 O2 Sat by Pulse Oximetry 98 06/14/18 04:46 Temperature 100.4 F H 06/14/18 04:46 Pulse Rate 85 06/14/18 04:46 Respiratory Rate 18 06/14/18 04:46 Blood Pressure 156/84 06/14/18 04:46 O2 Sat by Pulse Oximetry 98 06/14/18 04:46 Oxygen Delivery Oxygen Delivery Room Air Medical Decision Making - Medical Records Medical records reviewed: Yes I reviewed the patient's medical records. - Lab Data Lab results reviewed: Yes I reviewed the patient's lab results. Lab results narrative: Lab Results 06/14/18 06/14/18 06/14/18 Range/Units 05:05 05:21 05:21 WBC 7.7 (4.3-11.1) K/mcL RBC 4.94 (3.82-4.97) M/mcL Hgb 13.8 (11.5-15.4) g/dL Hct 42.9 (35.3-44.9) % MCV 86.8 (83.0-100.0) fL MCH 27.9 L (28.0-33.3) pg MCHC 32.2 (31.6-35.5) g/dL RDW 13.6 (11.5-14.5) % Plt Count 111 L (140-400) K/mcL MPV 11.9 (9.4-12.4) fL Immature Gran % 0.3 (0-4) % Seg Neutrophils % 85.2 % Lymphocytes % 6.1 % Monocytes % 7.6 % Eosinophils % 0.5 % Basophils % 0.3 % Neutrophils # 6.5 (1.6-8.9) K/mcL Lymphocytes # 0.5 L (0.6-4.6) K/mcL Monocytes # 0.6 (0.0-1.3) K/mcL Eosinophils # 0.0 (0.0-0.6) K/mcL Basophils # 0.0 (0.0-0.2) K/mcL D-Dimer (0-500) ng/mLFEU Sodium 142 (136-145) mEq/L Potassium 4.1 (3.5-5.1) mEq/L Chloride 102 (98-107) mEq/L Carbon Dioxide 26 (23-29) mEq/L BUN 13 (8-23) mg/dL Creatinine 1.21 H (0.60-1.20) mg/dL Est GFR ( Amer) 51 L (> 60) Est GFR (Non-Af Amer) 42 L (> 60) BUN/Creatinine Ratio 11 (6-26) Glucose 125 H (70-105) mg/dL Calculated Osmolality 296 (280-300) Lactic Acid (0.5-2.2) mmol/L Calcium 9.8 (8.6-10.3) mg/dL Total Bilirubin 0.6 (0.3-1.0) mg/dL Direct Bilirubin 0.1 (0.0-0.2) mg/dL Indirect Bilirubin 0.5 (0.0-1.2) mg/dL AST 18 (13-39) Units/L ALT 11 (7-52) Units/L Alkaline Phosphatase 82 (34-104) Units/L Troponin I < 0.03 (< 0.04) ng/mL B-Natriuretic Peptide (Less than 100) pg/mL Serum Total Protein 6.7 (6.4-8.9) g/dL Albumin 4.4 (3.5-5.7) g/dL Globulin 2.3 L (2.4-3.5) g/dL Albumin/Globulin Ratio 1.9 (1.1-2.2) TSH 2.398 (0.340-5.600) mcIU/mL Urine Color Yellow (Yellow) Urine Clarity Clear (Clear) Urine pH 6.5 (5.0-8.0) pH Units Ur Specific [place] 1.019 (1.010-1.025) Urine Protein 100 H (Neg-Trace) mg/dL Urine Glucose (UA) Normal (Normal) mg/dL Urine Ketones Negative (Negative) mg/dL Urine Blood Negative (Negative) Urine Nitrite Negative (Negative) Urine Bilirubin Negative (Negative) Urine Urobilinogen Normal (Normal) mg/dL Ur Leukocyte Esterase Trace H (Negative) Urine Microscopic RBC 0-3 (0-3) per hpf Urine Microscopic WBC 5-15 H (0-3) per hpf Ur Squamous Epith Cells Many H (None-Few) per lpf Urine Bacteria None Seen (None-Few) per hpf Hyaline Casts None Seen (None-Few) per lpf Ur Culture Indicated? NO. A (NO) 06/14/18 06/14/18 06/14/18 Range/Units 05:21 05:21 05:50 WBC (4.3-11.1) K/mcL RBC (3.82-4.97) M/mcL Hgb (11.5-15.4) g/dL Hct (35.3-44.9) % MCV (83.0-100.0) fL MCH (28.0-33.3) pg MCHC (31.6-35.5) g/dL RDW (11.5-14.5) % Plt Count (140-400) K/mcL MPV (9.4-12.4) fL Immature Gran % (0-4) % Seg Neutrophils % % Lymphocytes % % Monocytes % % Eosinophils % % Basophils % % Neutrophils # (1.6-8.9) K/mcL Lymphocytes # (0.6-4.6) K/mcL Monocytes # (0.0-1.3) K/mcL Eosinophils # (0.0-0.6) K/mcL Basophils # (0.0-0.2) K/mcL D-Dimer 925 H (0-500) ng/mLFEU Sodium (136-145) mEq/L Potassium (3.5-5.1) mEq/L Chloride (98-107) mEq/L Carbon Dioxide (23-29) mEq/L BUN (8-23) mg/dL Creatinine (0.60-1.20) mg/dL Est GFR ( Amer) (> 60) Est GFR (Non-Af Amer) (> 60) BUN/Creatinine Ratio (6-26) Glucose (70-105) mg/dL Calculated Osmolality (280-300) Lactic Acid 1.6 (0.5-2.2) mmol/L Calcium (8.6-10.3) mg/dL Total Bilirubin (0.3-1.0) mg/dL Direct Bilirubin (0.0-0.2) mg/dL Indirect Bilirubin (0.0-1.2) mg/dL AST (13-39) Units/L ALT (7-52) Units/L Alkaline Phosphatase (34-104) Units/L Troponin I (< 0.04) ng/mL B-Natriuretic Peptide 568 H (Less than 100) pg/mL Serum Total Protein (6.4-8.9) g/dL Albumin (3.5-5.7) g/dL Globulin (2.4-3.5) g/dL Albumin/Globulin Ratio (1.1-2.2) TSH (0.340-5.600) mcIU/mL Urine Color (Yellow) Urine Clarity (Clear) Urine pH (5.0-8.0) pH Units Ur Specific [place] (1.010-1.025) Urine Protein (Neg-Trace) mg/dL Urine Glucose (UA) (Normal) mg/dL Urine Ketones (Negative) mg/dL Urine Blood (Negative) Urine Nitrite (Negative) Urine Bilirubin (Negative) Urine Urobilinogen (Normal) mg/dL Ur Leukocyte Esterase (Negative) Urine Microscopic RBC (0-3) per hpf Urine Microscopic WBC (0-3) per hpf Ur Squamous Epith Cells (None-Few) per lpf Urine Bacteria (None-Few) per hpf Hyaline Casts (None-Few) per lpf Ur Culture Indicated? (NO) Result diagrams: 06/14/18 05:21 06/14/18 05:21 Lab Results 06/14/18 06/14/18 06/14/18 Range/Units 05:05 05:21 05:21 WBC 7.7 (4.3-11.1) K/mcL RBC 4.94 (3.82-4.97) M/mcL Hgb 13.8 (11.5-15.4) g/dL Hct 42.9 (35.3-44.9) % MCV 86.8 (83.0-100.0) fL MCH 27.9 L (28.0-33.3) pg MCHC 32.2 (31.6-35.5) g/dL RDW 13.6 (11.5-14.5) % Plt Count 111 L (140-400) K/mcL MPV 11.9 (9.4-12.4) fL Immature Gran % 0.3 (0-4) % Seg Neutrophils % 85.2 % Lymphocytes % 6.1 % Monocytes % 7.6 % Eosinophils % 0.5 % Basophils % 0.3 % Neutrophils # 6.5 (1.6-8.9) K/mcL Lymphocytes # 0.5 L (0.6-4.6) K/mcL Monocytes # 0.6 (0.0-1.3) K/mcL Eosinophils # 0.0 (0.0-0.6) K/mcL Basophils # 0.0 (0.0-0.2) K/mcL D-Dimer (0-500) ng/mLFEU Sodium 142 (136-145) mEq/L Potassium 4.1 (3.5-5.1) mEq/L Chloride 102 (98-107) mEq/L Carbon Dioxide 26 (23-29) mEq/L BUN 13 (8-23) mg/dL Creatinine 1.21 H (0.60-1.20) mg/dL Est GFR ( Amer) 51 L (> 60) Est GFR (Non-Af Amer) 42 L (> 60) BUN/Creatinine Ratio 11 (6-26) Glucose 125 H (70-105) mg/dL Calculated Osmolality 296 (280-300) Lactic Acid (0.5-2.2) mmol/L Calcium 9.8 (8.6-10.3) mg/dL Total Bilirubin 0.6 (0.3-1.0) mg/dL Direct Bilirubin 0.1 (0.0-0.2) mg/dL Indirect Bilirubin 0.5 (0.0-1.2) mg/dL AST 18 (13-39) Units/L ALT 11 (7-52) Units/L Alkaline Phosphatase 82 (34-104) Units/L Troponin I < 0.03 (< 0.04) ng/mL B-Natriuretic Peptide (Less than 100) pg/mL Serum Total Protein 6.7 (6.4-8.9) g/dL Albumin 4.4 (3.5-5.7) g/dL Globulin 2.3 L (2.4-3.5) g/dL Albumin/Globulin Ratio 1.9 (1.1-2.2) TSH 2.398 (0.340-5.600) mcIU/mL Urine Color Yellow (Yellow) Urine Clarity Clear (Clear) Urine pH 6.5 (5.0-8.0) pH Units Ur Specific [place] 1.019 (1.010-1.025) Urine Protein 100 H (Neg-Trace) mg/dL Urine Glucose (UA) Normal (Normal) mg/dL Urine Ketones Negative (Negative) mg/dL Urine Blood Negative (Negative) Urine Nitrite Negative (Negative) Urine Bilirubin Negative (Negative) Urine Urobilinogen Normal (Normal) mg/dL Ur Leukocyte Esterase Trace H (Negative) Urine Microscopic RBC 0-3 (0-3) per hpf Urine Microscopic WBC 5-15 H (0-3) per hpf Ur Squamous Epith Cells Many H (None-Few) per lpf Urine Bacteria None Seen (None-Few) per hpf Hyaline Casts None Seen (None-Few) per lpf Ur Culture Indicated? NO. A (NO) 06/14/18 06/14/18 06/14/18 Range/Units 05:21 05:21 05:50 WBC (4.3-11.1) K/mcL RBC (3.82-4.97) M/mcL Hgb (11.5-15.4) g/dL Hct (35.3-44.9) % MCV (83.0-100.0) fL MCH (28.0-33.3) pg MCHC (31.6-35.5) g/dL RDW (11.5-14.5) % Plt Count (140-400) K/mcL MPV (9.4-12.4) fL Immature Gran % (0-4) % Seg Neutrophils % % Lymphocytes % % Monocytes % % Eosinophils % % Basophils % % Neutrophils # (1.6-8.9) K/mcL Lymphocytes # (0.6-4.6) K/mcL Monocytes # (0.0-1.3) K/mcL Eosinophils # (0.0-0.6) K/mcL Basophils # (0.0-0.2) K/mcL D-Dimer 925 H (0-500) ng/mLFEU Sodium (136-145) mEq/L Potassium (3.5-5.1) mEq/L Chloride (98-107) mEq/L Carbon Dioxide (23-29) mEq/L BUN (8-23) mg/dL Creatinine (0.60-1.20) mg/dL Est GFR ( Amer) (> 60) Est GFR (Non-Af Amer) (> 60) BUN/Creatinine Ratio (6-26) Glucose (70-105) mg/dL Calculated Osmolality (280-300) Lactic Acid 1.6 (0.5-2.2) mmol/L Calcium (8.6-10.3) mg/dL Total Bilirubin (0.3-1.0) mg/dL Direct Bilirubin (0.0-0.2) mg/dL Indirect Bilirubin (0.0-1.2) mg/dL AST (13-39) Units/L ALT (7-52) Units/L Alkaline Phosphatase (34-104) Units/L Troponin I (< 0.04) ng/mL B-Natriuretic Peptide 568 H (Less than 100) pg/mL Serum Total Protein (6.4-8.9) g/dL Albumin (3.5-5.7) g/dL Globulin (2.4-3.5) g/dL Albumin/Globulin Ratio (1.1-2.2) TSH (0.340-5.600) mcIU/mL Urine Color (Yellow) Urine Clarity (Clear) Urine pH (5.0-8.0) pH Units Ur Specific [place] (1.010-1.025) Urine Protein (Neg-Trace) mg/dL Urine Glucose (UA) (Normal) mg/dL Urine Ketones (Negative) mg/dL Urine Blood (Negative) Urine Nitrite (Negative) Urine Bilirubin (Negative) Urine Urobilinogen (Normal) mg/dL Ur Leukocyte Esterase (Negative) Urine Microscopic RBC (0-3) per hpf Urine Microscopic WBC (0-3) per hpf Ur Squamous Epith Cells (None-Few) per lpf Urine Bacteria (None-Few) per hpf Hyaline Casts (None-Few) per lpf Ur Culture Indicated? (NO) - Radiology Data Radiology results reviewed: Yes I reviewed the patient's radiology results. Chest X-Ray 06/14/18 05:01 IMPRESSION: No acute cardiopulmonary abnormality. D/ / Chiquita Petit MD / Chiquita Petit MD Interpreting Provider: Chiquita Petit MD Abdomen/Pelvis CT 06/14/18 06:46 IMPRESSION: 1. No convincing acute finding in the abdomen or pelvis to account for patient's abdominal pain and nausea. 2. Mild gallbladder distension with subtle pericholecystic stranding. If patient has right upper quadrant abdominal pain, consider right upper quadrant ultrasound for further evaluation. 3. Extensive sigmoid and colonic diverticulosis. No evidence of diverticulitis. 4. Infrarenal abdominal aortic aneurysm, 3.2 cm in diameter. Please see below for follow-up recommendations. RECOMMENDATIONS: Managing Abdominal Aortic Aneurysms 3.0-3.4 cm: Every 3 years. Reference: J Vasc Surg. 2009 Jan;50(4 Suppl):S2-49 D/ / 06/14/2018 08:06:11 Campos Emanuel MD / Christelle Rodríguez Interpreting Provider: Campos Emanuel MD Chest CTA 06/14/18 06:46 IMPRESSION: 1. Tracheobronchiomalacia with thickened secretions which may be related to aspiration versus mucus plugging. 2. No focal lung infiltrate or pulmonary embolism. 3. Elevation of the right hemidiaphragm with asymmetric volume loss in the right lung base. D/ / 06/14/2018 08:03:09 Parrish Tony MD / joe Interpreting Provider: Parrish Tony MD Head CT 06/14/18 06:46 IMPRESSION: No acute intracranial abnormality. Previous bilateral maxillary sinus surgery with wide bilateral antrostomies noted. There is with chronic right frontal, ethmoid and maxillary sinusitis. D/ / Rodolfo Perdomo MD / Rodolfo Perdomo MD Interpreting Provider: Rodolfo Perdomo MD Gallbladder Ultrasound 06/14/18 08:52 IMPRESSION: Mildly distended gallbladder with some sludge within the gallbladder. No gallbladder stones or findings for acute cholecystitis. D/ : / 06/14/2018 09:43:41 Wilder Swenson MD / kennedi Interpreting Provider: Wilder Swenson MD Attestation Statement - Attestation Attestation: Medical screening examination/treatment/procedure(s) were conducted as a shared visit with non-physician practitioner(s) and myself. I personally evaluated the patient during the encounter. Patient with a history of hypertension, ITP, COPD, CK-MB, ERICA, hyperlipidemia, depression; presents emergency department today for evaluation of multiple complaints. Chief complaint of nausea and abdominal pain. Patient is unable to give specific etiology of when things started. Patient has a history of aortic aneurysm and is concerned that it may be related to this as she is supposed undergo further ultrasound evaluation today. Normal surveillance ultrasound scheduled as well as Holter monitor for episodes of intermittent dizziness. Patient's review of systems included headache which she describes a frontal headache for the last 2 days with her concern for possible sinus infection. Back pain which she describes as lower back pain and chronic. Generalized body aches which she is believes started several days ago and related to 's recent diagnosis of influenza. Nausea. No vomiting. No diarrhea. No skin rashes or lesions. No difficulty with seeing. No sore throat. No change in hearing. Patient overall has not been having some sick fevers or chills. Per family the patient has been more depressed. had recent decline in health with macular degeneration surgery that his left patient significantly blind, 's , was recently diagnosed with bladder cancer which is undergoing further evaluation but he is not a candidate for surgery. Her is also in the hospital at this time secondary to complications from the flu. Patient has not been doing well at home. Significant functional decline at home. Patient is undergoing further evaluation for underlying etiology. Patient has undergone stents of lab workup. Patient did have an elevated d-dimer. Patient is undergoing CT head, CTA chest, CT IV contrast of abdomen and pelvis. Depending on blood work and imaging patient will be reevaluated. Patient feels safe at home we will continue to monitor symptoms. Patient feels unsafe at home she will likely need to be admitted for near syncope, influenza-like illness, depression, and functional decline. No acute distress, resting in bed comfortably, conversational, hard of hearing, regular rhythm, clear to auscultation bilaterally, abdomen soft mild tenderness lower quadrants without rebound or guarding, no significant peripheral edema. No rashes, lesions.
[2018-06-14] MEDS ORDERED: 0.9 % Sodium Chloride 500 ML IVC ONE (07:12)
[2018-06-14] MEDS ORDERED: Ondansetron 4 MG/2 ML VIAL IVP ONE (07:22)
[2018-06-14] MEDS ORDERED: traMADol 50 MG TABLET PO STA (07:22)
[2018-06-14] MEDS ORDERED: Acetaminophen 325 MG TABLET PO ONE (07:37)
[2018-06-14 08:00] LABS: Thyroid Stimulating Hormone 2.398 mcIU/mL (0.340-5.600)
[2018-06-14] MEDS ORDERED: Piperacillin/Tazobactam 3.375 GM in 0.9 % Sodium Chloride Mini Bag 100 ML IVPB ONE (08:53)
[2018-06-14 09:10] LABS: Alanine Aminotransferase 11 Units/L (7-52); Albumin 4.4 g/dL (3.5-5.7); Albumin/Globulin Ratio 1.9 (1.1-2.2); Alkaline Phosphatase 82 Units/L (34-104); Aspartate Amino Transferase 18 Units/L (13-39); Bilirubin,Direct 0.1 mg/dL (0.0-0.2); Bilirubin,Indirect 0.5 mg/dL (0.0-1.2); Bilirubin,Total 0.6 mg/dL (0.3-1.0); Globulin 2.3 g/dL (2.4-3.5); Total Protein 6.7 g/dL (6.4-8.9)
[2018-06-14] MEDS ORDERED: Naloxone 0.4 MG/ML INJ IVP PRN ×2 (10:52→18:01)
--- NOTE | 2018-06-14 11:05 | Internal Med History&Physical ---
Date of Encounter: 06/14/18 Time of Encounter: 10:56 Internal Medicine - H&P: HPI Chief complaint: SOB Admitted From: Home Plans for Post Hospital Care: Home History of present illness: Ms. Roland is a 87 year old female renal disease, HTn adnHLD presented to the ED with complaint of SOB. as per patietn she has baseline SOB but before ED presentation her SOB worsened. SOB is both at rest adn ambulation, Sudden onset. no associated with palpitations or chest pain. she reports taht she is under alot of stress lately her is admitted to [facility] and is being treated for PNA. she was supposed to have US of michelle abdomen performed today for AAA and was also nervous and had anxiety about that. she was also alone at home and scared has had multiple recent stresses from her refrigerator to her family. currently she reports that her SOB has resolved. she has chronic nasal congestion and denies voice changes - she uses flonase on regular bases with relief of her sx. she denies fever, chills, N/V/D, CP, palpitations, cough, het or cold intolerance. as per nursing staff who took care of her a few days ago family reported that his "the patient" will be coming to the hospital shortly wanting to be admitted for "attention" Past Med Surg Social Fam HX - Past Medical History Medical history: arthritis, hyperlipidemia, hypertension, renal disease, other Additional medical history: sleep apnea Psychiatric history: anxiety, depression - Past Surgical History Surgical History: knee replacement, orthopedic, other, other Additional surgical history: LTKR 2003. OVARIAN CYST RESECTION 1998. SINUS SX X2. CLARITA SHOULDER REPLACEMENT. RTKR 11/14/13. 04/18/16 RIGHT HUMERUS ORIF @[place] W/DR LYNN - Social History Smoking Status: Never smoker Smokeless Tobacco Status: No Alcohol use: none Drug use: none - Family History Mother Family Member Ethnicity: Non- Living Status: Hx Family Cardiac Disorders: No Hx Family Respiratory Disorders: No Hx Family Cancer: No Hx Family GI Disorders: No Internal Medicine - H&P: Meds Fluticasone Propionate Nasal [Flonase] 2 spray NS DAILY 04/18/16 [History] Gabapentin [Neurontin] 300 mg PO BID 04/18/16 [History] Lisinopril [Zestril] 20 mg PO DAILY 04/18/16 [History] Metoprolol Succinate 100 mg PO DAILY 04/18/16 [History] Multivitamin [One Daily Essential] 1 tab PO DAILY 04/18/16 [History] Omeprazole [PriLOSEC] 40 mg PO DAILY 04/18/16 [History] Tramadol HCl [Ultram] 100 mg PO Q8H PRN 04/18/16 [History] Vit C/E/Zn/Coppr/Lutein/Zeaxan [Ocuvite Lutein & Zeaxanthin Cp] 1 cap PO DAILY 04/18/16 [History] Loratadine [Claritin] 10 mg PO DAILY 07/01/16 [History] Lactobacillus Combination No.8 [Adult Probiotic] 2 cap PO DAILY 04/06/17 [History] amLODIPine [Norvasc] 5 mg PO DAILY 04/06/17 [History] Amoxicillin/Clavulanate [Augmentin] 500 mg PO BIDWM #7 tablet 04/09/17 [Rx] predniSONE [PredniSONE] 40 mg PO DAILY tablet 04/09/17 [Rx] GuaiFENesin ER [Mucinex] 600 mg PO BID #10 tbbp.12hr 05/18/17 [Rx] Allergy/AdvReac Type Severity Reaction Status Date / Time aspirin Allergy Nausea Verified 05/18/17 11:11 cefdinir Allergy UNKNOWN Verified 05/18/17 11:11 ciprofloxacin Allergy Anaphylaxis Verified 05/18/17 11:11 codeine Allergy "MADE ME Verified 05/18/17 11:11 CRAZY" morphine Allergy N/V Verified 05/18/17 11:11 Sulfa (Sulfonamide Allergy UNEFFECTIVE Verified 05/18/17 11:11 Antibiotics) oxycodone [Oxycodone] AdvReac "DON'T Verified 05/18/17 11:11 LIKE THE WAY IT MAKES ME FEEL" All Systems PM: A 10-system review of systems was performed and is negative for pertinent findings except as documented above in the HPI. - Constitutional Vitals: Temp Pulse Resp BP Pulse Ox 100.4 F H 85 18 156/84 98 06/14/18 04:46 06/14/18 04:46 06/14/18 04:46 06/14/18 04:46 06/14/18 04:46 Exam: General: Patient is alert, oriented, no acute distress, obese, congested voice. Head: atraumatic, normocephalic, Eye: normal appearance, PERRL, no scleral icterus, no conjunctival injection ENT: mucous membranes moist, normal external ear exam Neck: normal inspection, trachea midline, full ROM, no carotid bruits Chest: normal inspection, symmetric chest rise Respiratory: Good respiratory effort. bilateral breath sounds are decreased. no crackles appreciated Cardiovascular: Regular rate and rhythm. s1 and s2 No clicks, rubs, gallops, or murmors. Abdomen: Bowel sounds present normoactive x-4 quadrants. Abdomen is soft, nondistended. no Epigastric tenderness. No guarding or rebound. No organomegaly noted, obese musculoskeletal: Spontaneously moving all extremities. no edema, no calf tenderness Skin: warm, dry, intact. Neuro: Alert and oriented x4. no focal deficit Psych: Patient's affect is normal Internal Med - H&P Results - Labs CBC & Chem 7: 06/14/18 05:21 06/14/18 05:21 Labs: Short CBC 06/14/18 Range/Units 05:21 WBC 7.7 (4.3-11.1) K/mcL Hgb 13.8 (11.5-15.4) g/dL Hct 42.9 (35.3-44.9) % Plt Count 111 L (140-400) K/mcL Neutrophils # 6.5 (1.6-8.9) K/mcL BMP 06/14/18 05:21 Sodium 142 Potassium 4.1 Chloride 102 Carbon Dioxide 26 BUN 13 Creatinine 1.21 H Glucose 125 H Calcium 9.8 Cardiac Enzymes 06/14/18 Range/Units 05:21 Troponin I < 0.03 (< 0.04) ng/mL Liver Function 06/14/18 Range/Units 05:21 Total Bilirubin 0.6 (0.3-1.0) mg/dL Direct Bilirubin 0.1 (0.0-0.2) mg/dL AST 18 (13-39) Units/L ALT 11 (7-52) Units/L Alkaline Phosphatase 82 (34-104) Units/L Albumin 4.4 (3.5-5.7) g/dL Urine 06/14/18 Range/Units 05:05 Urine Color Yellow (Yellow) Urine Clarity Clear (Clear) Urine pH 6.5 (5.0-8.0) pH Units Ur Specific [place] 1.019 (1.010-1.025) Urine Protein 100 H (Neg-Trace) mg/dL Urine Glucose (UA) Normal (Normal) mg/dL - EKG Data -: EKG Interpreted by Myself (NSR, LAD, repolarization abnormalities ) - EKG Data When compared to previous EKG: there is no significant change - Impressions ITS Impressions Chest X-Ray 06/14/18 05:01 IMPRESSION: No acute cardiopulmonary abnormality. D/ / Chiquita Petit MD / Chiquita Petit MD Interpreting Provider: Chiquita Petit MD Abdomen/Pelvis CT 06/14/18 06:46 IMPRESSION: 1. No convincing acute finding in the abdomen or pelvis to account for patient's abdominal pain and nausea. 2. Mild gallbladder distension with subtle pericholecystic stranding. If patient has right upper quadrant abdominal pain, consider right upper quadrant ultrasound for further evaluation. 3. Extensive sigmoid and colonic diverticulosis. No evidence of diverticulitis. 4. Infrarenal abdominal aortic aneurysm, 3.2 cm in diameter. Please see below for follow-up recommendations. RECOMMENDATIONS: Managing Abdominal Aortic Aneurysms 3.0-3.4 cm: Every 3 years. Reference: J Vasc Surg. 2009 Jan;50(4 Suppl):S2-49 D/ /14/2018 08:06:11 Campos Emanuel MD / Christelle Rodríguez Interpreting Provider: Campos Emanuel MD Chest CTA 06/14/18 06:46 IMPRESSION: 1. Tracheobronchiomalacia with thickened secretions which may be related to aspiration versus mucus plugging. 2. No focal lung infiltrate or pulmonary embolism. 3. Elevation of the right hemidiaphragm with asymmetric volume loss in the right lung base. D/ : / 06/14/2018 08:03:09 Parrish Tony MD / joe Interpreting Provider: Parrish Tony MD Head CT 06/14/18 06:46 IMPRESSION: No acute intracranial abnormality. Previous bilateral maxillary sinus surgery with wide bilateral antrostomies noted. There is with chronic right frontal, ethmoid and maxillary sinusitis. D/ / Rodolfo Perdomo MD / Rodolfo Perdomo MD Interpreting Provider: Rodolfo Perdomo MD Gallbladder Ultrasound 06/14/18 08:52 IMPRESSION: Mildly distended gallbladder with some sludge within the gallbladder. No gallbladder stones or findings for acute cholecystitis. D/ / 06/14/2018 09:43:41 Wilder Swenson MD / kennedi Interpreting Provider: Wilder Swenson MD - Assessment and Plan (1) Aspiration into airway Current Visit: Yes Status: Acute Assessment and plan: CTPA with Tracheobronchiomalacia with thickened secretions which may be related to aspiration versus mucus plugging. was started on zosyn in the ED - will change to unasyn as she has chronic thrombocytopenia urine antigen respiratory viral panel swallow eval sputum cx duo-nebs CTPA IMPRESSION: 1. Tracheobronchiomalacia with thickened secretions which may be related to aspiration versus mucus plugging. 2. No focal lung infiltrate or pulmonary embolism. 3. Elevation of the right hemidiaphragm with asymmetric volume loss in the right lung base. Qualifiers: Encounter type: initial encounter Qualified Code(s): T17.908A - Unspecified foreign body in respiratory tract, part unspecified causing other injury, initial encounter (2) Moderate to severe pulmonary hypertension Current Visit: Yes Status: Acute Assessment and plan: has oxygen at home continue Duo-nebs and oxygen TTE 10/2017- Impressions: LVEF 60-65%. Normal LV chamber size, wall thickness and function. Moderate left ventricular diastolic dysfunction. Normal right ventricular structure and function. Moderate-severe pulmonary hypertension. Estimated RVSP is 56 mmHg. No significant valvular dysfunction. (3) CKD (chronic kidney disease) stage 3, GFR 30-59 ml/min Current Visit: No Status: Chronic Assessment and plan: continue with gentle hydration - she received significant amount of contrast continue to monitor renal function creatinine was 1.21 baseline is about 1.2 avoid nephrotoxic medications (4) Chronic ITP (idiopathic thrombocytopenia) Current Visit: No Status: Chronic Assessment and plan: platelets are 111 run anywhere from 80-130 recently avoid AC and antiplatelets (5) ERICA (obstructive sleep apnea) Current Visit: No Status: Chronic Assessment and plan: continue with oxygen and CPAP at nights (6) Hyperlipidemia Current Visit: No Status: Acute Assessment and plan: continue home medications Qualifiers: Hyperlipidemia type: unspecified Qualified Code(s): E78.5 - Hyperlipidemia, unspecified (7) HTN (hypertension) Current Visit: No Status: Acute Assessment and plan: continue home medications Qualifiers: Hypertension type: essential hypertension Qualified Code(s): I10 - Essential (primary) hypertension (8) AAA (abdominal aortic aneurysm) Current Visit: Yes Status: Acute Assessment and plan: Infrarenal abdominal aortic aneurysm, 3.2 cm in diameter. as per radiologist- AAA 3.0-3.4 cm: Every 3 years. CTA abdomen 1. No convincing acute finding in the abdomen or pelvis to account for patient's abdominal pain and nausea. 2. Mild gallbladder distension with subtle pericholecystic stranding. If patient has right upper quadrant abdominal pain, consider right upper quadrant ultrasound for further evaluation. 3. Extensive sigmoid and colonic diverticulosis. No evidence of diverticulitis. 4. Infrarenal abdominal aortic aneurysm, 3.2 cm in diameter. Please see below for follow-up recommendations. Qualifiers: Presence of rupture: without rupture Qualified Code(s): I71.4 - Abdominal aortic aneurysm, without rupture (9) Morbidly obese Current Visit: Yes Status: Acute Assessment and plan: BMI is 61.2 nutrition consult (10) Anxiety Current Visit: Yes Status: Acute Assessment and plan: consider psych consult (11) Cholelithiases Current Visit: Yes Status: Acute Assessment and plan: negative tran sign, incidental finding OP surgical eval CT A/P Mild gallbladder distension with subtle pericholecystic stranding. If patient has right upper quadrant abdominal pain, consider right upper quadrant ultrasound for further evaluation. RUQ US: Mildly distended gallbladder with some sludge within the gallbladder. No gallbladder stones or findings for acute cholecystitis. Qualifiers: Cholelithiasis location: gallbladder Cholecystitis presence: without cholecystitis Biliary obstruction: without biliary obstruction Qualified Code(s): K80.20 - Calculus of gallbladder without cholecystitis without obstruction (12) DVT prophylaxis Current Visit: No Status: Acute Assessment and plan: SCDs - Time Spent With Patient Total time spent is greater than 50% in coordination of care (as documented) at patient's floor/unit and/or counseling patient:
[2018-06-14] MEDS ORDERED: Ipratropium/Albuterol Neb 3 ML IH PRN (11:33)
[2018-06-14] MEDS ORDERED: Acetaminophen 325 MG TABLET PO PRN (12:08)
[2018-06-14 14:48] LABS: Adenovirus Not Detected (Not Detect); Bordetella Pertussis Not Detected (Not Detect); Chlamydophila pneumoniae Not Detected (Not Detect); Coronavirus 229E Not Detected (Not Detect); Coronavirus HKU1 Not Detected (Not Detect); Coronavirus NL63 Not Detected (Not Detect); Coronavirus OC43 Not Detected (Not Detect); Human Metapneumovirus Not Detected (Not Detect); Human Rhinovirus/Enterovirus Not Detected (Not Detect); Influenza A Subtype 2009 H1 Not Detected (Not Detect); Influenza A Untypeable Not Detected (Not Detect); Influenza B Not Detected (Not Detect); Mycoplasma pneumoniae Not Detected (Not Detect); Parainfluenza Virus 1 Not Detected (Not Detect); Parainfluenza Virus 2 Not Detected (Not Detect); Parainfluenza Virus 3 Not Detected (Not Detect); Parainfluenza Virus 4 Not Detected (Not Detect); Respiratory Syncytial Virus Not Detected (Not Detect)
[2018-06-14] MEDS: 0.9 % Sodium Chloride 1,000 ML IVC SCH (14:48)
[2018-06-14] MEDS: amLODIPine 5 MG TABLET PO SCH (14:49)
[2018-06-14] MEDS: Ampicillin/Sulbactam 1,500 MG in 0.9 % Sodium Chloride Mini Bag 100 ML IVPB SCH (17:19)
[2018-06-14] MEDS: Famotidine 20 MG TABLET PO SCH (19:33)
[2018-06-14] MEDS: Oseltamivir Phosphate 30 MG CAPSULE PO SCH (19:33)
[2018-06-14] MEDS: *HR* HYDROcodone/Acet 5/325 mg TABLET PO PRN (19:34)
[2018-06-15] MEDS ORDERED: amLODIPine 5 MG TABLET PO ONE (03:47)
[2018-06-15 03:53] LABS: Immature Granulocytes % 0.2 % (0-4)
[2018-06-15 03:54] LABS: Basophils % 0.7 %; Eosinophils # 0.1 K/mcL (0.0-0.6); Eosinophils % 1.4 %; Hematocrit 44.1 % (35.3-44.9); Hemoglobin 13.9 g/dL (11.5-15.4); Lymphocytes % 24.9 %; Mean Corpuscular HGB Conc 31.5 g/dL (31.6-35.5); Mean Corpuscular Hemoglobin 27.9 pg (28.0-33.3); Mean Corpuscular Volume 88.4 fL (83.0-100.0); Mean Platelet Volume 12.2 fL (9.4-12.4); Monocytes # 0.5 K/mcL (0.0-1.3); Monocytes % 12.6 %; Neutrophils # 2.5 K/mcL (1.6-8.9); Red Blood Count 4.99 M/mcL (3.82-4.97); Red Cell Distribution Width 13.9 % (11.5-14.5); Segmented Neutrophils % 60.2 %
[2018-06-15 04:08] LABS: Calcium 9.3 mg/dL (8.6-10.3); Chol/HDL Ratio 3.4 (0-4.9); Phosphorous 4.1 mg/dL (2.7-4.5); Potassium 4.1 mEq/L (3.5-5.1)
[2018-06-15 04:10] LABS: Platelet Count 82 K/mcL (140-400)
[2018-06-15] MEDS: Ampicillin/Sulbactam 1,500 MG in 0.9 % Sodium Chloride Mini Bag 100 ML IVPB SCH ×2 (05:44→16:44)
[2018-06-15] MEDS: *HR* HYDROcodone/Acet 5/325 mg TABLET PO PRN ×3 (05:52→21:24)
[2018-06-15] MEDS: Loratadine 10 MG TABLET PO SCH (07:45)
[2018-06-15] MEDS: amLODIPine 5 MG TABLET PO SCH (07:45)
[2018-06-15] MEDS: Famotidine 20 MG TABLET PO SCH ×2 (07:45→20:53)
[2018-06-15] MEDS: Lactobacillus 1 EACH CAP.SPRINK PO SCH (07:45)
[2018-06-15] MEDS: Fluticasone Propionate Nasal 50 MCG/SPRAY BOTTLE NS SCH (07:51)
--- NOTE | 2018-06-15 08:22 | Electrocardiograph Report ---
[facility] Test Date: 2018-06-14 Pat Name: Jamia Roland Department: [id number] Room: 3B14 Gender: F Electric [employer]: : [id number] Requested By: Conner Crockett Order Number: [id number] Reading MD: Abraham Holguin Measurements Intervals [place] Rate: 83 P: 52 AL: 119 QRS: -61 QRSD: 99 T: 106 QT: 392 QTc: 461 Interpretive Statements Normal sinus rhythm Left schmitt axis Electronically Signed On 06-15-2018 8:21:09 EST by Abraham Holguin
--- NOTE | 2018-06-15 09:43 | Internal Med Progress Note ---
Hospitalist Progress Note - Encounter Date of Encounter: 06/15/18 Time of Encounter: 09:40 - Subjective Interval History: Pt reported nasal congestion, cough, and sob have improved. Her recently was ill and was in this hospital now. He seems having a flu as well. She has no fever, chills, or night sweats. - Exam Vitals: Temp Pulse Resp BP Pulse Ox 98.8 F 78 19 148/75 96 06/15/18 07:27 06/15/18 07:27 06/15/18 07:27 06/15/18 07:27 06/15/18 07:27 Exam: General: Patient is alert, oriented, no acute distress, obese, congested voice. Head: atraumatic, normocephalic, Eye: normal appearance, PERRL, no scleral icterus, no conjunctival injection ENT: mucous membranes moist, normal external ear exam Neck: normal inspection, trachea midline, full ROM, no carotid bruits Chest: normal inspection, symmetric chest rise Respiratory: Good respiratory effort. bilateral breath sounds are decreased. no crackles appreciated Cardiovascular: Regular rate and rhythm. s1 and s2 No clicks, rubs, gallops, or murmors. Abdomen: Bowel sounds present normoactive x-4 quadrants. Abdomen is soft, nondistended. no Epigastric tenderness. No guarding or rebound. No organome sabra noted, obese musculoskeletal: Spontaneously moving all extremities. no edema, no calf tenderness Skin: warm, dry, intact. Neuro: Alert and oriented x4. no focal deficit Psych: Patient's affect is normal - Assessment and Plan (1) Aspiration into airway Current Visit: Yes Status: Acute Assessment and Plan: CTA with Tracheobronchiomalacia with thickened secretions which may be related to aspiration versus mucus plugging. was started on zosyn in the ED - will change to unasyn as she has chronic thrombocytopenia urine antigen respiratory viral panel swallow eval sputum cx duo-nebs CTPA IMPRESSION: 1. Tracheobronchiomalacia with thickened secretions which may be related to aspiration versus mucus plugging. 2. No focal lung infiltrate or pulmonary embolism. 3. Elevation of the right hemidiaphragm with asymmetric volume loss in the right lung base. 06/15 Respiratory panel is positive for Flu. on tamiflu. Pt received IV unasyn for possible aspiration PNA. Symptoms improving. (2) Flu Current Visit: Yes Status: Acute Assessment and Plan: same as above. (3) HTN (hypertension) Current Visit: No Status: Chronic Assessment and Plan: continue home medications once verified. (4) CKD (chronic kidney disease) stage 3, GFR 30-59 ml/min Current Visit: No Status: Chronic Assessment and Plan: continue with gentle hydration - she received significant amount of contrast continue to monitor renal function creatinine was 1.21 baseline is about 1.2 avoid nephrotoxic medications (5) ERICA (obstructive sleep apnea) Current Visit: No Status: Chronic Assessment and Plan: continue with oxygen and CPAP at nights (6) Hyperlipidemia Current Visit: No Status: Acute Assessment and Plan: continue home medications (7) Chronic ITP (idiopathic thrombocytopenia) Current Visit: No Status: Chronic Assessment and Plan: platelets are 111 run anywhere from 80-130 recently avoid AC and antiplatelets (8) DVT prophylaxis Current Visit: No Status: Acute (9) Moderate to severe pulmonary hypertension Current Visit: No Status: Chronic Assessment and Plan: has oxygen at home continue Duo-nebs and oxygen. TTE 10/2017- Impressions: LVEF 60-65%. Normal LV chamber size, wall thickness and function. Moderate left ventricular diastolic dysfunction. Normal right ventricular structure and function. Moderate-severe pulmonary hypertension. Estimated RVSP is 56 mmHg. No significant valvular dysfunction. (10) AAA (abdominal aortic aneurysm) Current Visit: Yes Status: Acute Assessment and Plan: Infrarenal abdominal aortic aneurysm, 3.2 cm in diameter. as per radiologist- AAA 3.0-3.4 cm: Every 3 years. CTA abdomen 1. No convincing acute finding in the abdomen or pelvis to account for patient's abdominal pain and nausea. 2. Mild gallbladder distension with subtle pericholecystic stranding. If patient has right upper quadrant abdominal pain, consider right upper quadrant ultrasound for further evaluation. 3. Extensive sigmoid and colonic diverticulosis. No evidence of diverticulitis. 4. Infrarenal abdominal aortic aneurysm, 3.2 cm in diameter. Please see below for follow-up recommendations. (11) Morbidly obese Current Visit: Yes Status: Acute Assessment and Plan: BMI is 61.2 nutrition consult (12) Anxiety Current Visit: Yes Status: Acute Assessment and Plan: mood stable, continue current treatment. (13) Cholelithiases Current Visit: Yes Status: Acute Assessment and Plan: negative tran sign, incidental finding OP surgical eval CT A/P Mild gallbladder distension with subtle pericholecystic stranding. If patient has right upper quadrant abdominal pain, consider right upper quadrant ultrasound for further evaluation. RUQ US: Mildly distended gallbladder with some sludge within the gallbladder. No gallbladder stones or findings for acute cholecystitis. DVT Prophylaxis: SCDs - Time Spent with Patient Total time spent is greater than 50% in coordination of care (as documented) at patient's floor/unit and/or counseling patient: Greater than 35 minutes Plan of Care Discussed with: patient Internal Medicine: Result - Labs CBC & Chem 7: 06/15/18 03:09 06/15/18 03:09 Labs: Short CBC 06/15/18 Range/Units 03:09 WBC 4.1 L (4.3-11.1) K/mcL Hgb 13.9 (11.5-15.4) g/dL Hct 44.1 (35.3-44.9) % Plt Count 82 L (140-400) K/mcL Neutrophils # 2.5 (1.6-8.9) K/mcL BMP 06/15/18 03:09 Sodium 140 Potassium 4.1 Chloride 104 Carbon Dioxide 28 BUN 13 Creatinine 1.20 Glucose 94 Calcium 9.3 Cardiac Enzymes 06/14/18 Range/Units 11:53 Troponin I < 0.03 (< 0.04) ng/mL - ABG Interpretation ABG results: PT/INR, D-dimer D-Dimer 925 ng/mLFEU (0-500) H 06/14/18 05:21 - Impressions Impressions Gallbladder Ultrasound 06/14/18 08:52 IMPRESSION: Mildly distended gallbladder with some sludge within the gallbladder. No gallbladder stones or findings for acute cholecystitis. D/ / 06/14/2018 09:43:41 Wilder Swenson MD / [facility] Interpreting Provider: Wilder Swenson MD Consult Discharge Plan - Plan Referrals: Brionna Baum DO [Partnered Physician] - 06/30/18 9:45 am Malik Mason DO [Partnered Physician] - 08/23/18 1:25 pm Dejon Schilling MD [Partnered Physician] - 06/22/18 10:45 am (1) Aspiration into airway Qualifiers: Encounter type: initial encounter Qualified Code(s): T17.908A - Unspecified f oreign body in respiratory tract, part unspecified causing other injury, initial encounter (3) HTN (hypertension) Qualifiers: Hypertension type: essential hypertension Qualified Code(s): I10 - Essential (primary) hypertension (6) Hyperlipidemia Qualifiers: Hyperlipidemia type: unspecified Qualified Code(s): E78.5 - Hyperlipidemia, unspecified (10) AAA (abdominal aortic aneurysm) Qualifiers: Presence of rupture: without rupture Qualified Code(s): I71.4 - Abdominal aortic aneurysm, without rupture (13) Cholelithiases Qualifiers: Cholelithiasis location: gallbladder Cholecystitis presence: without cholecystitis Biliary obstruction: without biliary obstruction Qualified Code(s): K80.20 - Calculus of gallbladder without cholecystitis without obstruction
[2018-06-15] MEDS ORDERED: Ipratropium/Albuterol Neb 3 ML IH SCH (10:00)
[2018-06-15] MEDS: 0.9 % Sodium Chloride 1,000 ML IVC SCH (14:08)
[2018-06-15] MEDS: Oseltamivir Phosphate 30 MG CAPSULE PO SCH (20:53)
[2018-06-15] MEDS ORDERED: Menthol 9.1 MG LOZENGE PO PRN (21:22)
[2018-06-15] MEDS ORDERED: GuaiFENesin/Dextromethorphan TABLET PO PRN (23:03)
[2018-06-15] MEDS ORDERED: traMADol 50 MG TABLET PO ONE (23:54)
--- NOTE | 2018-06-16 01:37 | Event Note ---
Date of Encounter: 06/15/18 Time of Encounter: 21:04 Alerted by pts. nurse CAROL Mckeon that pt. was reporting 2-3/10 pain in chest r/t coughing. Pt. has been coughing for the past several days. EKG ordered which showed sinus rhythm, left anterior fasicular block, moderate ST depression, abnormal ECG. BP at the time 171/78. One-time order of 10 mg IVP hydralazine placed w/instructions to monitor pts. BP Q15MIN x4 following administration. Alerted at 22:36 that pt. had coughed up a small amount of pink-tinged sputum from coughing. BP after hydralazine 154/78. Went to see pt. who was resting in bed. Pt. reports a nagging cough. Mucinex order DCd and replaced w/Mucinex DM. During exam, pt. reported that she has chronic back pain and is currently experiencing pain. I asked the pt. what she took at home for pain d/t her allergies to codeine and morphine. Pt. stated that she usually takes Tramadol. One-time order for Tramadol 100 mg placed. Lidocaine patches also ordered for her back pain. Nurse instructed to continue monitoring pt. closely and alert me immediately of any adverse changes.
[2018-06-16 04:02] LABS: Basophils % 0.4 %; Eosinophils # 0.1 K/mcL (0.0-0.6); Eosinophils % 2.4 %; Hemoglobin 13.8 g/dL (11.5-15.4); Immature Granulocytes % 0.2 % (0-4); Lymphocytes # 1.1 K/mcL (0.6-4.6); Lymphocytes % 20.6 %; Mean Corpuscular HGB Conc 32.1 g/dL (31.6-35.5); Mean Corpuscular Hemoglobin 27.8 pg (28.0-33.3); Mean Corpuscular Volume 86.7 fL (83.0-100.0); Mean Platelet Volume 11.2 fL (9.4-12.4); Monocytes # 0.6 K/mcL (0.0-1.3); Monocytes % 11.7 %; Neutrophils # 3.5 K/mcL (1.6-8.9); Platelet Count 96 K/mcL (140-400); Red Blood Count 4.96 M/mcL (3.82-4.97); Red Cell Distribution Width 13.8 % (11.5-14.5); Segmented Neutrophils % 64.7 %
[2018-06-16 04:21] LABS: Calcium 8.9 mg/dL (8.6-10.3); Potassium 3.5 mEq/L (3.5-5.1)
[2018-06-16] MEDS: Ampicillin/Sulbactam 1,500 MG in 0.9 % Sodium Chloride Mini Bag 100 ML IVPB SCH ×2 (06:06→17:11)
[2018-06-16] MEDS: Metoprolol XL (24 HR) Succ 50 MG TAB.ER.24H PO SCH (08:52)
[2018-06-16] MEDS: Multivit/Ca/Min/Fe/FA 1 TAB TABLET PO SCH (08:52)
[2018-06-16] MEDS: Lactobacillus 1 EACH CAP.SPRINK PO SCH (08:52)
[2018-06-16] MEDS: Lisinopril 20 MG TABLET PO SCH (08:53)
[2018-06-16] MEDS: Famotidine 20 MG TABLET PO SCH ×2 (08:53→20:07)
[2018-06-16] MEDS: amLODIPine 5 MG TABLET PO SCH (08:54)
[2018-06-16] MEDS: traMADol 50 MG TABLET PO PRN ×2 (08:54→20:08)
[2018-06-16] MEDS: Fluticasone Propionate Nasal 50 MCG/SPRAY BOTTLE NS SCH (08:54)
[2018-06-16] MEDS: Loratadine 10 MG TABLET PO SCH (08:54)
[2018-06-16] MEDS: [UNRECOGNIZED DRUG - OTHER] PO SCH (08:55)
--- NOTE | 2018-06-16 10:02 | Internal Med Progress Note ---
Hospitalist Progress Note - Encounter Date of Encounter: 06/16/18 Time of Encounter: 10:02 - Subjective Interval History: Patient was seen and examined at bedside. Currently patient is ambulating in the room without difficulty denies any shortness of breath however faint audible wheezing is noted. I did discuss treatment plan with the patient who verbalized understanding - Exam Vitals: Temp Pulse Resp BP Pulse Ox 98.7 F 88 16 168/83 98 06/16/18 06:34 06/16/18 06:34 06/16/18 06:34 06/16/18 06:34 06/16/18 06:34 Exam: General: Patient is alert, oriented, no acute distress, obese, congested voice. Head: atraumatic, normocephalic, Eye: normal appearance, PERRL, no scleral icterus, no conjunctival injection ENT: mucous membranes moist, normal external ear exam Neck: normal inspection, trachea midline, full ROM, no carotid bruits Chest: normal inspection, symmetric chest rise Respiratory: Good respiratory effort. bilateral faint expiratory wheeze Cardiovascular: Regular rate and rhythm. s1 and s2 No clicks, rubs, gallops, or murmors. Abdomen: Bowel sounds present normoactive x-4 quadrants. Abdomen is soft, nondistended. no Epigastric tenderness. No guarding or rebound. No organomegaly noted, obese musculoskeletal: Spontaneously moving all extremities. no edema, no calf tenderness Skin: warm, dry, intact. Neuro: Alert and oriented x4. no focal deficit Psych: Patient's affect is normal - Assessment and Plan (1) HTN (hypertension) Current Visit: No Status: Chronic Assessment and Plan: continue home medications-blood pressure stable at this time. (2) CKD (chronic kidney disease) stage 3, GFR 30-59 ml/min Current Visit: No Status: Chronic Assessment and Plan: Renal function is improving crying 1.15 today GFR is 45 continue to monitor renal function creatinine was 1.21 baseline is about 1.2 avoid nephrotoxic medications (3) ERICA (obstructive sleep apnea) Current Visit: No Status: Chronic Assessment and Plan: continue with oxygen and CPAP at nights (4) Hyperlipidemia Current Visit: No Status: Acute Assessment and Plan: continue home medications (5) Chronic ITP (idiopathic thrombocytopenia) Current Visit: No Status: Chronic Assessment and Plan: platelets are 111 run anywhere from 80-130 recently avoid AC and antiplatelets (6) DVT prophylaxis Current Visit: No Status: Acute Assessment and Plan: SCDs (7) Moderate to severe pulmonary hypertension Current Visit: No Status: Chronic Assessment and Plan: has oxygen at home -continue oxygen as needed continue Duo-nebs and oxygen. TTE 10/2017- Impressions: LVEF 60-65%. Normal LV chamber size, wall thickness and function. Moderate left ventricular diastolic dysfunction. Normal right ventricular structure and function. Moderate-severe pulmonary hypertension. Estimated RVSP is 56 mmHg. No significant valvular dysfunction. (8) Aspiration into airway Current Visit: Yes Status: Acute Assessment and Plan: CTA with Tracheobronchiomalacia with thickened secretions which may be related to aspiration versus mucus plugging. was started on zosyn in the ED - will change to unasyn as she has chronic thrombocytopenia urine antigen negative respiratory viral panel -positive for influenza A swallow eval -speech therapy recommending inpatient continue current diet as tolerated GI consult may be beneficial to further evaluate patient for a pain while swallowing and reflux-currently patient denies any painful swallowing sputum cx duo-nebs Pulmonology was consulted for tracheobronchial malacia CTPA IMPRESSION: 1. Tracheobronchiomalacia with thickened secretions which may be related to aspiration versus mucus plugging. 2. No focal lung infiltrate or pulmonary embolism. 3. Elevation of the right hemidiaphragm with asymmetric volume loss in the right lung base. (9) AAA (abdominal aortic aneurysm) Current Visit: Yes Status: Acute Assessment and Plan: Infrarenal abdominal aortic aneurysm, 3.2 cm in diameter. as per radiologist- AAA 3.0-3.4 cm: Every 3 years. CTA abdomen 1. No convincing acute finding in the abdomen or pelvis to account for patient's abdominal pain and nausea. 2. Mild gallbladder distension with subtle pericholecystic stranding. If patient has right upper quadrant abdominal pain, consider right upper quadrant ultrasound for further evaluation. 3. Extensive sigmoid and colonic diverticulosis. No evidence of diverticulitis. 4. Infrarenal abdominal aortic aneurysm, 3.2 cm in diameter. Please see below for follow-up recommendations. (10) Morbidly obese Current Visit: Yes Status: Acute Assessment and Plan: BMI is 61.2 nutrition consult (11) Anxiety Current Visit: Yes Status: Acute Assessment and Plan: mood stable, continue current treatment. (12) Cholelithiases Current Visit: Yes Status: Acute Assessment and Plan: negative tran sign, incidental finding OP surgical eval -currently denies any pain or discomfort CT A/P Mild gallbladder distension with subtle pericholecystic stranding. If patient has right upper quadrant abdominal pain, consider right upper quadrant ultrasound for further evaluation. RUQ US: Mildly distended gallbladder with some sludge within the gallbladder. No gallbladder stones or findings for acute cholecystitis. (13) Flu Current Visit: Yes Status: Acute Assessment and Plan: Continue with Tamiflu Oxygen support duo nebs cough drops Tylenol for malaise - Time Spent with Patient Total time spent is greater than 50% in coordination of care (as documented) at patient's floor/unit and/or counseling patient: Internal Medicine: Result - Labs CBC & Chem 7: 06/16/18 03:06 06/16/18 03:06 Labs: Short CBC 06/16/18 Range/Units 03:06 WBC 5.4 (4.3-11.1) K/mcL Hgb 13.8 (11.5-15.4) g/dL Hct 43.0 (35.3-44.9) % Plt Count 96 L (140-400) K/mcL Neutrophils # 3.5 (1.6-8.9) K/mcL BMP 06/16/18 03:06 Sodium 139 Potassium 3.5 Chloride 109 H Carbon Dioxide 27 BUN 15 Creatinine 1.15 Glucose 119 H Calcium 8.9 - ABG Interpretation ABG results: PT/INR, D-dimer D-Dimer 925 ng/mLFEU (0-500) H 06/14/18 05:21 - Impressions Impressions Abdomen/Pelvis CT 06/14/18 06:46 IMPRESSION: 1. No convincing acute finding in the abdomen or pelvis to account for patient's abdominal pain and nausea. 2. Mild gallbladder distension with subtle pericholecystic stranding. If patient has right upper quadrant abdominal pain, consider right upper quadrant ultrasound for further evaluation. 3. Extensive sigmoid and colonic diverticulosis. No evidence of diverticulitis. 4. Infrarenal abdominal aortic aneurysm, 3.2 cm in diameter. Please see below for follow-up recommendations. RECOMMENDATIONS: Managing Abdominal Aortic Aneurysms 3.0-3.4 cm: Every 3 years. Reference: J Vasc Surg. 2009 Jan;50(4 Suppl):S2-49 D/ / 06/14/2018 08:06:11 Campos Emanuel MD / Christelle Rodríguez Interpreting Provider: Campos Emanuel MD Consult Discharge Plan - Plan Referrals: Brionna Baum DO [Partnered Physician] - 06/30/18 9:45 am Malik Mason DO [Partnered Physician] - 08/23/18 1:25 pm Dejon Schilling MD [Partnered Physician] - 06/22/18 10:45 am (1) HTN (hypertension) Qualifiers: Hypertension type: essential hypertension Qualified Code(s): I10 - Essential (primary) hypertension (4) Hyperlipidemia Qualifiers: Hyperlipidemia type: unspecified Qualified Code(s): E78.5 - Hyperlipidemia, unspecified (8) Aspiration into airway Qualifiers: Encounter type: initial encounter Qualified Code(s): T17.908A - Unspecified foreign body in respiratory tract, part unspecified causing other injury, initial encounter (9) AAA (abdominal aortic aneurysm) Qualifiers: Presence of rupture: without rupture Qualified Code(s): I71.4 - Abdominal aortic aneurysm, without rupture (12) Cholelithiases Qualifiers: Cholelithiasis location: gallbladder Cholecystitis presence: without cholecystitis Biliary obstruction: without biliary obstruction Qualified Code(s): K80.20 - Calculus of gallbladder without cholecystitis without obstruction
--- NOTE | 2018-06-16 10:37 | Pulmonology History & Physical ---
<Marcus Devine - Last Filed: 06/16/18 11:13> Date of Encounter: 06/16/18 Time of Encounter: 10:29 Assessment and Plan (1) Airway malacia Current visit: Yes Status: Acute 87-year-old female presenting with shortness of breath consult to pulmonology for CTA with showing possible tracheobronchial malacia with concerns for aspiration. Respiratory viral panel shows positive times a day and patient has been started on Tamiflu. At this time is impossible to say that she truly has tracheobronchomalacia despite positive CTA findings. Patient currently does not have a have white blood cell counts, is afebrile, lactic acid 1.6, SaO2 90% on [address] Gallagher will speak with patient and discuss possibility of bronchoscopy to definitively diagnose tracheal bronchomalacia. At this time he does not think that antibiotics are necessary. Plan: Continue Tamiflu. Discontinue Unasyn. Will speak with patient to discuss possibility for bronchoscopy. Continue a.m. CBC and BMP (2) Flu Current visit: Yes Status: Acute Patient has positive influenza A PCR. See above for plan. History of Present Illness Chief complaint: SOB HPI: Ms. Roland is a 87 year old female consulted to pulmonology for sob secondary to tracheobronchiomalacia with thickened secretions which may be related to aspiration versus mucus plugging. History of arthritis, hyperlipidemia, hypertension, renal disease stage III. Patient states that she started feeling unwell last Thursday. She states that she was having periods of dizziness, fever, nausea, shortness of breath, productive cough that was yellow. She pre sented to ED and was admitted for shortness of breath. During her stay she was given a respiratory viral panel which were positive for influenza A. She was started on Tamiflu. She was also given Unasyn. Chest CTA was done and tracheal bronchial malacia was found. Patient denies vomiting, chest pain, palpitations, new onset myalgia, abdominal pain, changes in stooling, changes in urination, pa in in extremities. Labs: - Influenza A PCR positive, negative respiratory viral panel - Normal WBC count, Imaging: - 06/13/18 CXR No acute cardiopulmonary abnormality. - 06/14/18 Chest CTA Tracheobronchiomalacia with thickened secretions which may be related to aspiration versus mucus plugging. Antibiotics: - 06/14 Started on Zosyn at ED - 06/15 Changed to unasyn because she has chronic thrombocytopenia Past Med Surg Social Fam HX - Past Medical History Medical history: arthritis, hyperlipidemia, hypertension, renal disease, other Additional medical history: sleep apnea Psychiatric history: anxiety, depression - Past Surgical History Surgical History: knee replacement, orthopedic, other, other Additional surgical history: LTKR 2004. OVARIAN CYST RESECTION 1998. SINUS SX X2. CLARITA SHOULDER REPLACEMENT. RTKR 11/14/13. 04/18/16 RIGHT HUMERUS ORIF @[facility] W/DR LYNN - Social History Smoking Status: Never smoker Smokeless Tobacco Status: No Alcohol use: none Drug use: none - Family History Mother Family Member Ethnicity: Non- Living Status: Hx Family Cardiac Disorders: No Hx Family Respiratory Disorders: No Hx Family Cancer: No Hx Family GI Disorders: No Medications and Allergies RX: Fluticasone Propionate Nasal [Flonase] 2 spray NS DAILY 04/18/16 [History] RX: Gabapentin [Neurontin] 300 mg PO BID 04/18/16 [History] RX: Lisinopril [Zestril] 20 mg PO DAILY 04/18/16 [History] RX: Multivitamin [One Daily Essential] 1 tab PO DAILY 04/18/16 [History] RX: Omeprazole [PriLOSEC] 40 mg PO DAILY 04/18/16 [History] RX: Tramadol HCl [Ultram] 100 mg PO BID PRN 04/18/16 [History] RX: Vit C/E/Zn/Coppr/Lutein/Zeaxan [Ocuvite Lutein & Zeaxanthin Cp] 1 cap PO DAILY 04/18/16 [History] RX: Loratadine [Claritin] 10 mg PO DAILY 07/01/16 [History] RX: Lactobacillus Combination No.8 [Adult Probiotic] 2 cap PO DAILY 04/06/17 [History] RX: amLODIPine [Norvasc] 5 mg PO DAILY 04/06/17 [History] GuaiFENesin ER [Mucinex] 600 mg PO BID #10 tbbp.12hr 05/18/17 [Rx] Albuterol Neb [Proventil Neb] 2.5 mg IH Q6H PRN 06/15/18 [History] Metoprolol Succinate [Toprol Xl] 100 mg PO DAILY 06/15/18 [History] Allergy/AdvReac Type Severity Reaction Status Date / Time aspirin Allergy Nausea Verified 05/18/17 11:11 cefdinir Allergy UNKNOWN Verified 05/18/17 11:11 ciprofloxacin Allergy Anaphylaxis Verified 05/18/17 11:11 codeine Allergy "MADE ME Verified 05/18/17 11:11 CRAZY" morphine Allergy N/V Verified 05/18/17 11:11 Sulfa (Sulfonamide Allergy UNEFFECTIVE Verified 05/18/17 11:11 Antibiotics) oxycodone [Oxycodone] AdvReac "DON'T Verified 05/18/17 11:11 [address] THE WAY IT MAKES ME FEEL" All Systems: The remainder of the systems were reviewed and are negative Review of Systems: 10 point review of systems was completed. Refer to history of present illness for ROS. - Constitutional Constitutional: as per HPI - Cardiovascular Cardiovascular: as per HPI - Respiratory Respiratory: as per HPI - Gastrointestinal Gastrointestinal: as per HPI - Genitourinary Genitourinary: as per HPI - Integumentary Integumentary: as per HPI - Neurological Neurological: as per HPI - Allergic/Immunologic Allergic/Immunologic: as per HPI Physical Examination Vital Signs: Vital Signs, Last 4 Hours Temp Pulse Resp BP Pulse Ox 06/16/18 06:34 98.7 F 88 16 168/83 98 General appearance: no acute distress, alert Eyes: nonicteric Neck: supple Effort: normal Inspection: normal Auscultation: bilateral: wheezes Cardiovascular: regular rate and rhythm Gastrointestinal: normoactive bowel sounds, non-tender Extremities: no cyanosis, no edema, pulses normal normal mental status mood appropriate, affect normal Results - Laboratory Findings CBC and BMP: 06/16/18 03:06 06/16/18 03:06 PT/INR, D-dimer D-Dimer 925 ng/mLFEU (0-500) H 06/14/18 05:21 Abnormal lab findings: Abnormal lab results MCH 27.8 pg (28.0-33.3) L 06/16/18 03:06 Plt Count 96 K/mcL (140-400) L 06/16/18 03:06 Immature Plt Fraction 9.0 % (1.1-6.1) H 06/15/18 03:09 D-Dimer 925 ng/mLFEU (0-500) H 06/14/18 05:21 Chloride 109 mEq/L (98-107) H 06/16/18 03:06 Est GFR ( Amer) 54 (> 60) L 06/16/18 03:06 Est GFR (Non-Af Amer) 45 (> 60) L 06/16/18 03:06 Glucose 119 mg/dL (70-105) H 06/16/18 03:06 B-Natriuretic Peptide 568 pg/mL (Less than 100) H 06/14/18 05:21 Globulin 2.3 g/dL (2.4-3.5) L 06/14/18 05:21 Urine Protein 100 mg/dL (Neg-Trace) H 06/14/18 05:05 Ur Leukocyte Esterase Trace (Negative) H 06/14/18 05:05 Urine Microscopic WBC 5-15 per hpf (0-3) H 06/14/18 05:05 Ur Squamous Epith Cells Many per lpf (None-Few) H 06/14/18 05:05 Ur Culture Indicated? NO. (NO) A 06/14/18 05:05 Influenza A (H3) PCR DETECTED (Not Detect) A 06/14/18 13:00 <Gonsalo Gallagher M - Last Filed: 06/16/18 16:20> Date of Encounter: 06/16/18 History of Present Illness HPI: Ms. Roland is a 87 year old female All Systems: The remainder of the systems were reviewed and are negative Physical Examination Vital Signs: Vital Signs, Last 4 Hours Temp Pulse Resp BP Pulse Ox 06/16/18 15:27 98.9 F 71 16 143/73 97 Results - Laboratory Findings CBC and BMP: 06/16/18 03:06 06/16/18 03:06 PT/INR, D-dimer D-Dimer 925 ng/mLFEU (0-500) H 06/14/18 05:21 Abnormal lab findings: Abnormal lab results MCH 27.8 pg (28.0-33.3) L 06/16/18 03:06 Plt Count 96 K/mcL (140-400) L 06/16/18 03:06 Immature Plt Fraction 9.0 % (1.1-6.1) H 06/15/18 03:09 D-Dimer 925 ng/mLFEU (0-500) H 06/14/18 05:21 Chloride 109 mEq/L (98-107) H 06/16/18 03:06 Est GFR ( Amer) 54 (> 60) L 06/16/18 03:06 Est GFR (Non-Af Amer) 45 (> 60) L 06/16/18 03:06 Glucose 119 mg/dL (70-105) H 06/16/18 03:06 B-Natriuretic Peptide 568 pg/mL (Less than 100) H 06/14/18 05:21 Globulin 2.3 g/dL (2.4-3.5) L 06/14/18 05:21 Urine Protein 100 mg/dL (Neg-Trace) H 06/14/18 05:05 Ur Leukocyte Esterase Trace (Negative) H 06/14/18 05:05 Urine Microscopic WBC 5-15 per hpf (0-3) H 06/14/18 05:05 Ur Squamous Epith Cells Many per lpf (None-Few) H 06/14/18 05:05 Ur Culture Indicated? NO. (NO) A 06/14/18 05:05 Influenza A (H3) PCR DETECTED (Not Detect) A 06/14/18 13:00 - Attending Attestation Please make a correction this is pulmonary consultation not H&P. I examined this patient and my medical decision-making was reviewed with the Resident Physician. I agree with the documented findings, disposition and treatment plan as described except to the extent set forth below. Patient seen and examined. Labs, radiology, chart personally reviewed. Agree with resident's history and physical, assessment, plan with following comments: MEDICAL CONSULTANT: Patient follows commands, Pulmonary: Acceptable oxygenation and ventilation Patient is very pleasant and known to me from outpatient clinic and clearly with having influenza is affecting her breathing and she has audible wheezing on examination. As far as her airway finding in the CAT scan its expected with her age group and treatment is only supportive and this time and since that several infection perhaps a short course of antibiotics and can be stopped after that. Bronchoscopy can be done when the airway is more stable and to prevent exacerbations and inflammation on her airway. Thank you for consultation and please call for any questions.
[2018-06-16] MEDS: Oseltamivir Phosphate 30 MG CAPSULE PO SCH (20:08)
--- NOTE | 2018-06-16 20:31 | Electrocardiograph Report ---
[address] [place] [address] Test Date: 2018-06-15 Pat Name: Jamia Roland Department: 113 Room: 3B14 Gender: F Timber Feller: : 1930 Requested By: [id number] Order Number: [id number] Reading MD: Anna Storey Measurements Intervals [place] Rate: 96 P: 89 WA: 125 QRS: -45 QRSD: 92 T: 72 QT: 352 QTc: 405 Interpretive Statements SINUS RHYTHM LEFT ANTERIOR FASCICULAR BLOCK MODERATE ST DEPRESSION Electronically Signed On 06-16-2018 20:29:57 EST by Anna Storey
[2018-06-17] MEDS: Ampicillin/Sulbactam 1,500 MG in 0.9 % Sodium Chloride Mini Bag 100 ML IVPB SCH (05:39)
[2018-06-17 05:50] LABS: Basophils % 0.5 %; Eosinophils # 0.2 K/mcL (0.0-0.6); Eosinophils % 5.5 %; Hematocrit 42.8 % (35.3-44.9); Hemoglobin 13.3 g/dL (11.5-15.4); Immature Granulocytes % 0.2 % (0-4); Lymphocytes # 1.4 K/mcL (0.6-4.6); Lymphocytes % 32.6 %; Mean Corpuscular HGB Conc 31.1 g/dL (31.6-35.5); Mean Corpuscular Hemoglobin 27.4 pg (28.0-33.3); Mean Corpuscular Volume 88.1 fL (83.0-100.0); Mean Platelet Volume 11.8 fL (9.4-12.4); Monocytes # 0.4 K/mcL (0.0-1.3); Monocytes % 9.2 %; Neutrophils # 2.3 K/mcL (1.6-8.9); Platelet Count 95 K/mcL (140-400); Red Blood Count 4.86 M/mcL (3.82-4.97); Red Cell Distribution Width 13.8 % (11.5-14.5)
[2018-06-17 06:21] LABS: Calcium 9.7 mg/dL (8.6-10.3); Potassium 4.4 mEq/L (3.5-5.1)
[2018-06-17] MEDS: Metoprolol XL (24 HR) Succ 50 MG TAB.ER.24H PO SCH (08:52)
[2018-06-17] MEDS: Lisinopril 20 MG TABLET PO SCH (08:52)
[2018-06-17] MEDS: Loratadine 10 MG TABLET PO SCH (08:52)
[2018-06-17] MEDS: Famotidine 20 MG TABLET PO SCH (08:52)
[2018-06-17] MEDS: Lactobacillus 1 EACH CAP.SPRINK PO SCH (08:53)
[2018-06-17] MEDS: [UNRECOGNIZED DRUG - OTHER] PO SCH (08:53)
[2018-06-17] MEDS: amLODIPine 5 MG TABLET PO SCH (08:53)
[2018-06-17] MEDS: Multivit/Ca/Min/Fe/FA 1 TAB TABLET PO SCH (08:53)
[2018-06-17] MEDS: Fluticasone Propionate Nasal 50 MCG/SPRAY BOTTLE NS SCH (08:54)
[2018-06-17 10:46] VITALS: BP 171/84
--- NOTE | 2018-06-17 12:25 | Internal Med Progress Note ---
Hospitalist Progress Note - Encounter Date of Encounter: 06/17/18 Time of Encounter: 12:23 - Exam Vitals: Temp Pulse Resp BP Pulse Ox 98.5 F 72 18 171/84 97 06/17/18 10:45 06/17/18 10:45 06/17/18 10:45 06/17/18 10:45 06/17/18 10:45 Exam: General: Patient is alert, oriented, no acute distress, obese, congested voice. Head: atraumatic, normocephalic, Eye: normal appearance, PERRL, no scleral icterus, no conjunctival injection ENT: mucous membranes moist, normal external ear exam Neck: normal inspection, trachea midline, full ROM, no carotid bruits Chest: normal inspection, symmetric chest rise Respiratory: Good respiratory effort. bilateral faint expiratory wheeze Cardiovascular: Regular rate and rhythm. s1 and s2 No clicks, rubs, gallops, or murmors. Abdomen: Bowel sounds present normoactive x-4 quadrants. Abdomen is soft, nondistended. no Epigastric tenderness. No guarding or rebound. No org anomegaly noted, obese musculoskeletal: Spontaneously moving all extremities. no edema, no calf tend erness Skin: warm, dry, intact. Neuro: Alert and oriented x4. no focal deficit Psych: Patient's affect is normal - Assessment and Plan (1) HTN (hypertension) Current Visit: No Status: Chronic Assessment and Plan: continue home medications-blood pressure stable at this time. (2) CKD (chronic kidney disease) stage 3, GFR 30-59 ml/min Current Visit: No Status: Chronic (3) ERICA (obstructive sleep apnea) Current Visit: No Status: Chronic (4) Hyperlipidemia Current Visit: No Status: Acute (5) Chronic ITP (idiopathic thrombocytopenia) Current Visit: No Status: Chronic (6) DVT prophylaxis Current Visit: No Status: Acute (7) Moderate to severe pulmonary hypertension Current Visit: No Status: Chronic (8) Aspiration into airway Current Visit: Yes Status: Acute (9) AAA (abdominal aortic aneurysm) Current Visit: Yes Status: Acute (10) Morbidly obese Current Visit: Yes Status: Acute (11) Anxiety Current Visit: Yes Status: Acute (12) Cholelithiases Current Visit: Yes Status: Acute (13) Flu Current Visit: Yes Status: Acute - Time Spent with Patient Total time spent is greater than 50% in coordination of care (as documented) at patient's floor/unit and/or counseling patient: Internal Medicine: Result - Labs CBC & Chem 7: 06/17/18 05:33 06/17/18 05:33 Labs: Short CBC 06/17/18 Range/Units 05:33 WBC 4.4 (4.3-11.1) K/mcL Hgb 13.3 (11.5-15.4) g/dL Hct 42.8 (35.3-44.9) % Plt Count 95 L (140-400) K/mcL Neutrophils # 2.3 (1.6-8.9) K/mcL BMP 06/17/18 05:33 Sodium 141 Potassium 4.4 Chloride 103 Carbon Dioxide 28 BUN 18 Creatinine 1.10 Glucose 109 H Calcium 9.7 - ABG Interpretation ABG results: PT/INR, D-dimer D-Dimer 925 ng/mLFEU (0-500) H 06/14/18 05:21 Consult Discharge Plan - Plan Referrals: Brionna Baum DO [Partnered Physician] - 06/30/18 9:45 am Malik Mason DO [Partnered Physician] - 08/23/18 1:25 pm Dejon Schilling MD [Partnered Physician] - 06/22/18 10:45 am (1) HTN (hypertension) Qualifiers: Hypertension type: essential hypertension Qualified Code(s): I10 - Essential (primary) hypertension (4) Hyperlipidemia Qualifiers: Hyperlipidemia type: unspecified Qualified Code(s): E78.5 - Hyperlipidemia, unspecified (8) Aspiration into airway Qualifiers: Encounter type: initial encounter Qualified Code(s): T17.908A - Unspecified foreign body in respiratory tract, part unspecified causing other injury, initial encounter (9) AAA (abdominal aortic aneurysm) Qualifiers: Presence of rupture: without rupture Qualified Code(s): I71.4 - Abdominal aortic aneurysm, without rupture (12) Cholelithiases Qualifiers: Cholelithiasis location: gallbladder Cholecystitis presence: without cholecystitis Biliary obstruction: without biliary obstruction Qualified Code(s): K80.20 - Calculus of gallbladder without cholecystitis without obstruction
--- NOTE | 2018-06-17 13:27 | Discharge Summary ---
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 Continue Tamiflu. ATB -Bronchoscopy can be done when the airway is more stable Orders not resulted at time of discharge: Pending orders 06/14/18 05:50 Culture,Blood [BC] Stat 06/14/18 10:57 Bedside Swallowing Evaluation [EVAL] Stat Culture,Sputum with Gram Stain [RM] Stat Date of Encounter: 06/17/18 Time of Encounter: 13:16 - Discharge Diagnosis (1) HTN (hypertension) Priority: Secondary Status: Chronic Qualifiers: Hypertension type: essential hypertension Qualified Code(s): I10 - Essential (primary) hypertension (2) CKD (chronic kidney disease) stage 3, GFR 30-59 ml/min Priority: Secondary Status: Chronic (3) ERICA (obstructive sleep apnea) Priority: Secondary Status: Chronic (4) Hyperlipidemia Priority: Secondary Status: Acute Qualifiers: Hyperlipidemia type: unspecified Qualified Code(s): E78.5 - Hyperlipidemia, unspecified (5) Chronic ITP (idiopathic thrombocytopenia) Priority: Secondary Status: Chronic (6) Moderate to severe pulmonary hypertension Priority: Secondary Status: Chronic (7) Aspiration into airway Priority: Secondary Status: Acute Qualifiers: Encounter type: initial encounter Qualified Code(s): T17.908A - Unspecified foreign body in respiratory tract, part unspecified causing other injury, initial encounter (8) AAA (abdominal aortic aneurysm) Priority: Secondary Status: Acute Qualifiers: Presence of rupture: without rupture Qualified Code(s): I71.4 - Abdominal aortic aneurysm, without rupture (9) Morbidly obese Priority: Secondary Status: Acute (10) Anxiety Priority: Secondary Status: Acute (11) Cholelithiases Priority: Secondary Status: Acute Qualifiers: Cholelithiasis location: gallbladder Cholecystitis presence: without cholecystitis Biliary obstruction: without biliary obstruction Qualified Code(s): K80.20 - Calculus of gallbladder without cholecystitis without obstruction (12) Flu Priority: Primary Status: Acute Hospital course: Ms. Roland is a 87 year old female past medical history of CKG 3 hypertension hyperlipidemia presented to [facility] ED with complaints of shortness of breath- patient does have shortness of breath however this is worse than her baseline- reports that her was just recently admitted to the hospital being treated for pneumonia chronic nasal congestion. Test extremity no acute cardiopulmonary process CT with infrarenal abdominal aortic aneurysm 3.2 cm in diameter CTA truncal tracheomalacia with thickened secretions within related to aspiration versus mucus plugging no focal lung infiltrate or pulmonary embolism gallbladder ultrasound was completed with mildly distended gallbladder with some sludge no gallstones or findings of acute cholecystitis lab work with no white count she did have slightly elevated creatinine and elevated d-dimer lactate was normal raspatory panel did reveal influenza A urinalysis unremarkable. Patient was admitted for treatment of influenza she was given Tamiflu as well as bronchodilators and supplemental oxygen. Respiratory state did not improve however she continued to complain of some difficulty swallowing she was by zay vasques who recommended possible GI consult. We did consult pulmonology concerning tracheomalacia no bronchoscopy at this time for 3 continuation of antibiotics for a short period and to follow-up bronchoscopy as outpatient. Patient states painful swallowing improved after receiving cough drops and has been tolerating oral intake. She has been eating and drinking without any difficulty she has been afebrile ambulating throughout the room without any difficulty. Currently patient appears to be at baseline. She will be discharged home and can follow up with her primary care provider. She will be given prescription for Tamiflu as well as Augmentin. Patient verbalized understanding currently hemodynamically stable at this time - Time Spent with Patient Total time spent providing and/or coordinating discharge services: - Discharge Medications Prescriptions: New Oseltamivir Phosphate [Tamiflu] 30 mg PO HS #2 capsule Amoxicillin/Clavulanate [Augmentin] 875 mg PO BIDWM #10 tablet Continue Tramadol HCl [Ultram] 100 mg PO BID PRN PRN Reason: Pain Omeprazole [PriLOSEC] 40 mg PO DAILY Vit C/E/Zn/Coppr/Lutein/Zeaxan [Ocuvite Lutein & Zeaxanthin Cp] 1 cap PO DAILY Multivitamin [One Daily Essential] 1 tab PO DAILY Lisinopril [Zestril] 20 mg PO DAILY Gabapentin [Neurontin] 300 mg PO BID Fluticasone Propionate Nasal [Flonase] 2 spray NS DAILY Loratadine [Claritin] 10 mg PO DAILY Lactobacillus Combination No.8 [Adult Probiotic] 2 cap PO DAILY amLODIPine [Norvasc] 5 mg PO DAILY GuaiFENesin ER [Mucinex] 600 mg PO BID #10 tbbp.12hr Albuterol Neb [Proventil Neb] 2.5 mg IH Q6H PRN PRN Reason: Shortness Of Breath Metoprolol Succinate [Toprol Xl] 100 mg PO DAILY Home Medications: Fluticasone Propionate Nasal [Flonase] 2 spray NS DAILY 04/18/16 [History] Gabapentin [Neurontin] 300 mg PO BID 04/18/16 [History] Lisinopril [Zestril] 20 mg PO DAILY 04/18/16 [History] Multivitamin [One Daily Essential] 1 tab PO DAILY 04/18/16 [History] Omeprazole [PriLOSEC] 40 mg PO DAILY 04/18/16 [History] Tramadol HCl [Ultram] 100 mg PO BID PRN 04/18/16 [History] Vit C/E/Zn/Coppr/Lutein/Zeaxan [Ocuvite Lutein & Zeaxanthin Cp] 1 cap PO DAILY 04/18/16 [History] Loratadine [Claritin] 10 mg PO DAILY 07/01/16 [History] Lactobacillus Combination No.8 [Adult Probiotic] 2 cap PO DAILY 04/06/17 [History] amLODIPine [Norvasc] 5 mg PO DAILY 04/06/17 [History] GuaiFENesin ER [Mucinex] 600 mg PO BID #10 tbbp.12hr 05/18/17 [Rx] Albuterol Neb [Proventil Neb] 2.5 mg IH Q6H PRN 06/15/18 [History] Metoprolol Succinate [Toprol Xl] 100 mg PO DAILY 06/15/18 [History] Amoxicillin/Clavulanate [Augmentin] 875 mg PO BIDWM #10 tablet 06/17/18 [Rx] Oseltamivir Phosphate [Tamiflu] 30 mg PO HS #2 capsule 06/17/18 [Rx] Allergies/Adverse Reactions: Allergy/AdvReac Type Severity Reaction Status Date / Time aspirin Allergy Nausea Verified 05/18/17 11:11 cefdinir Allergy UNKNOWN Verified 05/18/17 11:11 ciprofloxacin Allergy Anaphylaxis Verified 05/18/17 11:11 codeine Allergy "MADE ME Verified 05/18/17 11:11 CRAZY" morphine Allergy N/V Verified 05/18/17 11:11 Sulfa (Sulfonamide Allergy UNEFFECTIVE Verified 05/18/17 11:11 Antibiotics) oxycodone [Oxycodone] AdvReac "DON'T Verified 05/18/17 11:11 LIKE THE WAY IT MAKES ME FEEL" Date of admission: 06/15/18 16:24 Primary care physician: PCP NONE Consults: 06/15/18 09:30 Consult to Nurse Navigator [CONS] Routine Comment: PNEUMONIA 06/16/18 10:00 Consult to Pulmonology [CONS] Routine Consulting Provider: [facility] Reason for Consult: sob- Tracheobronchiomalacia with thickened secretions which may be related to aspiration versus mucus plugging. Time Notified: 10:02 Call Completed: Yes Discharging clinician: Heather Velarde Anticipated date of discharge: 06/17/18 - Constitutional Vitals: Temp Pulse Resp BP Pulse Ox 98.5 F 72 18 171/84 97 06/17/18 10:45 06/17/18 10:45 06/17/18 10:45 06/17/18 10:45 06/17/18 10:45 General appearance: Present: A&O X 3 Exam: . - Head Head exam: Present: atraumatic, normocephalic - Eye Eye exam: Present: PERRL, conjuntiva pink, sclera anicteric Pupils: Present: PERRL - Neck Neck exam general surgery: Present: supple, trachea midline. Absent: lymphadenopathy - Respiratory Respiratory exam: Present: wheezes. Absent: accessory muscle use, rales, rhonchi - Cardiovascular Cardiovascular exam: Present: RRR, +S1, +S2. Absent: diastolic murmur, gallop, rubs, systolic murmur - GI/Abdominal GI/Abdominal exam: Present: normal bowel sounds, soft, no peritoneal signs. Absent: distended, tenderness - Extremities Exam Extremities exam: Present: warm, radial pulses palpable and symmetrical. Absent: calf tenderness, cyanotic, pedal edema - Neurological Exam Neurological exam: Present: CN II-XII intact, oriented X3, no focal deficits. Absent: pronater drift, facial droop, speech deficit - Skin Skin exam: Present: dry, intact - Patient Status Disposition: Home, Self-Care Condition: Good Functional capacity at discharge: independent ambulation Overall status at discharge: patient is back to baseline - Discharge Instructions Instructions: Peripheral Vascular Disorders (DC) Follow Up With: Brionna Baum DO [Partnered Physician] - 06/30/18 9:45 am Malik Mason DO [Partnered Physician] - 08/23/18 1:25 pm Dejon Schilling MD [Partnered Physician] - 06/22/18 10:45 am - Diet and Activity Activity: increase activity as tolerated Diet: advance to your usual diet
== END 2018-06-17 16:49 | disposition home or self-care (01) | DRG 194 ==
LOC: EMEROOARM 04:42 → 3BNU 04:42
PROVIDERS: ADMIT Internal Medicine; ATTEND Internal Medicine